=== PATIENT | male | born 1940 | race Caucasian/White ===

== ENCOUNTER 2024-08-05 14:53 | Emergency (ER) | payer OTHER, SELFPAY ==
[2024-08-05 15:05] VITALS: BP 125/68
--- NOTE | 2024-08-05 16:07 | ED.GENMED ---
History of Present Illness
General
Chief Complaint: Skin Surface Trauma
Source: patient
Exam Limitations: none
Time Seen by Provider: 08/05/24 15:51
History of Present Illness
History of Present Illness:
Patient fell this morning. Was wearing a sweatshirt. Abrasions to the left arm. Sent by urgent care. No head injury no other complaints. Last tetanus is unknown.
Past History
Past History
ED Past Medical History: HTN and Hypercholesterolemia
ED Past Surgical History: None
Social History
Living: with family
Review of Systems
Review of Systems
All Other Systems: Not applicable
Phy Exam
Physical Exam
Physical Exam:
GENERAL: Alert and oriented in no apparent distress. Normocephalic atraumatic
EYE: Orbits normal.
NECK: Supple, nontender
CARDIAC: Regular rate and rhythm
LUNGS: No respiratory distress. No chest wall tenderness
NEUROLOGICAL: Alert and oriented , grossly non-focal
SKIN: Warm and dry, large approximately 30 cm x 10 cm skin tear to the left forearm full-thickness although paperthin skin. Flap-like skin tear to the olecranon. Also a superficial flap-like skin tear near the wrist. Superficial abrasion to the
left knee
MUSCULOSKELETAL: No edema,no deformity.Good color
PSYCH: Normal and appropriate interaction.
Course
Orders/Labs/Results
Orders:
Orders
08/05/24 16:06
Tetanus/Diphth/Acelpertussis [Adacel] 0.5 ml IM .ONCE ONE
Vital Signs
Initial and Last Documented VS:
Initial Vital Signs
Temp Pulse Resp BP Pulse Ox
98 F 86 20 125/68 96
08/05/24 15:05 08/05/24 15:05 08/05/24 15:05 08/05/24 15:05 08/05/24 15:05
Last Documented Vital Signs
Temp Pulse Resp BP Pulse Ox
98 F 86 20 125/68 96
08/05/24 15:05 08/05/24 15:05 08/05/24 15:05 08/05/24 15:05 08/05/24 15:05
MDM/Problems Addressed
Differential Diagnosis Includes:
There is no area to suture for the large skin loss. It is full-thickness although paperthin skin. The other areas will be carefully Steri-Stripped. [facility] wound care who will follow-up closely. May need a graft at some point
*Critical Care Note
Total Time (30-74mins, 75-104mins- exclusive of procedures): Not Applicable
Update Note
Update Note:
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 There is no sign of acute infection. Does not warrant antibiotic coverage at this time.
ED Attending Note
-
Portions of this chart may have been created with voice recognition software.� Occasional wrong word or��sound alike� substitutions may have occurred due to the inherent limitations of voice recognition software.
Discharge Plan
Departure
Patient Disposition: Home (Routine Discharge)
Date of Disposition: 08/05/24
Time of Disposition: 16:09
Patient with high blood pressure during this ER visit?: Yes
Discharge Problem:
Large full-thickness skin tear left fore, 2 other skin tears left arm, Left knee abrasion
Instructions: Wound Care ([place]), [facility]-Wounds, BLOOD PRESSURE
Prescriptions:
No Action
amlodipine 10 MG tablet
10 mg PO DAILY
lisinopril 40 MG tablet
40 mg PO DAILY
tamsulosin 0.4 MG capsule
0.4 mg PO BID
vitamin B complex 1 TAB tablet
1 tab PO DAILY
finasteride 5 MG tablet
5 mg PO DAILY
phenazopyridine 200 MG tablet
200 mg PO TID PRN (Reason: burning while urinating) Qty: 15 0RF
Activity Restrictions/Additional Instructions:
Call the wound center first thing tomorrow morning for close follow-up. You can let them know we did talk to Dr. Barbour
Interventions
Interventions:
*General Assessment Last Done: 08/05/24 15:04
Discharge Date and Time
Print Language: IRISH
[2024-08-05] MEDS: ADACEL 0.5 ML IM (16:40)
--- NOTE | 2024-08-05 17:00 | EDRN ---
Reviewed discharge instructions with patient and his friend. Both verbalized understanding. Ambulated with steady gait to the lobby. Refused a wheelchair when offered.
[2024-08-05 17:03] VITALS: BP 150/73
== END 2024-08-05 16:50 | disposition home or self-care (01) ==
LOC: EMR 14:53
PROVIDERS: EMERGENCY PHYSICIAN Emergency Medicine; FAMILY PHYSICIAN Internal Medicine
DX: S51.812A Laceration without foreign body of left forearm, initial encounter (principal); S51.012A Laceration without foreign body of left elbow, initial encounter; S80.212A Abrasion, left knee, initial encounter; W19.XXXA Unspecified fall, initial encounter; I10 Essential (primary) hypertension; Z23 Encounter for immunization
CPT/HCPCS: 99282; 90471; 90715

== ENCOUNTER → 2024-08-06 12:40 | Outpatient (REF) | payer OTHER, SELFPAY | LOC: WOUND 12:40 | PROVIDERS: ATTENDING PHYSICIAN Surgery; FAMILY PHYSICIAN Internal Medicine | DX: S51.802A Unspecified open wound of left forearm, initial encounter (principal); S51.002A Unspecified open wound of left elbow, initial encounter; W19.XXXA Unspecified fall, initial encounter | CPT/HCPCS: 99203 ==

== ENCOUNTER → 2024-08-13 10:17 | Outpatient (REF) | payer OTHER, SELFPAY | LOC: WOUND 10:17 | PROVIDERS: ATTENDING PHYSICIAN Surgery; FAMILY PHYSICIAN Internal Medicine | DX: S51.802A Unspecified open wound of left forearm, initial encounter (principal); S51.002A Unspecified open wound of left elbow, initial encounter; W19.XXXA Unspecified fall, initial encounter | CPT/HCPCS: 11042; 11045 ==

== ENCOUNTER → 2024-08-20 13:51 | Outpatient (REF) | payer OTHER, SELFPAY | LOC: WOUND 13:51 | PROVIDERS: ATTENDING PHYSICIAN Surgery | DX: S51.802A Unspecified open wound of left forearm, initial encounter (principal); S51.002A Unspecified open wound of left elbow, initial encounter; W19.XXXA Unspecified fall, initial encounter | CPT/HCPCS: 11042 ==

== ENCOUNTER → 2024-08-27 10:20 | Outpatient (REF) | payer OTHER, SELFPAY | LOC: WOUND 10:20 | PROVIDERS: ATTENDING PHYSICIAN Surgery; FAMILY PHYSICIAN Internal Medicine | DX: S51.802A Unspecified open wound of left forearm, initial encounter (principal); S51.002A Unspecified open wound of left elbow, initial encounter; S81.802A Unspecified open wound, left lower leg, initial encounter; W19.XXXA Unspecified fall, initial encounter | CPT/HCPCS: 99213 ==

== ENCOUNTER → 2024-09-03 10:39 | Outpatient (REF) | payer OTHER, SELFPAY | LOC: WOUND 10:39 | PROVIDERS: ATTENDING PHYSICIAN Surgery; FAMILY PHYSICIAN Internal Medicine | DX: S51.802A Unspecified open wound of left forearm, initial encounter (principal); S51.002A Unspecified open wound of left elbow, initial encounter; S81.802A Unspecified open wound, left lower leg, initial encounter; W19.XXXA Unspecified fall, initial encounter | CPT/HCPCS: 99213 ==

== ENCOUNTER → 2024-09-10 08:45 | Outpatient (REF) | payer OTHER, SELFPAY | LOC: WOUND 08:45 | PROVIDERS: ATTENDING PHYSICIAN Surgery; FAMILY PHYSICIAN Internal Medicine | DX: S51.802A Unspecified open wound of left forearm, initial encounter (principal); S51.002A Unspecified open wound of left elbow, initial encounter; W19.XXXA Unspecified fall, initial encounter | CPT/HCPCS: 99213 ==

== ENCOUNTER → 2024-09-17 10:28 | Outpatient (REF) | payer OTHER, SELFPAY | LOC: WOUND 10:28 | PROVIDERS: ATTENDING PHYSICIAN Surgery; FAMILY PHYSICIAN Internal Medicine | DX: S51.802A Unspecified open wound of left forearm, initial encounter (principal); S51.002A Unspecified open wound of left elbow, initial encounter; W19.XXXA Unspecified fall, initial encounter | CPT/HCPCS: 99212 ==

== ENCOUNTER 2025-03-23 16:37 | Inpatient (IN) | payer OTHER, SELFPAY ==
[2025-03-23] VITALS (14 sets, daily range): BP systolic 120–168; BP diastolic 60–110; BMI 23.4; BMI 21.7
--- NOTE | 2025-03-23 12:24 | ED.GENMED ---
History of Present Illness
<CHANEL Garvin - Last Filed: 03/23/25 14:42>
General
Chief Complaint: Change in Mental Status
Source: family
Exam Limitations: none
Time Seen by Provider: 03/23/25 12:23
Nursing documentation reviewed up to this point in time: agreed with
History of Present Illness
History of Present Illness:
Patient is a 84-year-old male who lives at home with and 24-hour caregiver. Patient was brought by daughter daughter reports ever since January 12 patient has been intermittently confused which is not like him. He has had his days and
nights confused. He was found outside on the ground the day prior to last week and also fell this morning. She does report he has a skin tear to his right arm.
Patient is awake alert he is mildly confused but able to answer questions
Past History
<CHANEL Garvin - Last Filed: 03/23/25 14:42>
Past History
ED Past Medical History: HTN and Hypercholesterolemia
ED Past Surgical History: None
Social History
Living: with family
Phy Exam
<CHANEL Garvin - Last Filed: 03/23/25 14:42>
General Physical Exam
General Presentation: no apparent distress
General age: appears stated age
General Skin: warm and dry
General Habitus: normal
General Mental: alert
General Hydration: appears well hydrated
Cardiovascular Exam
Cardiovascular Exam: no murmur and normal peripheral pulses
Pulmonary Exam
Pulmonary Exam: lungs clear and no respiratory distress
Neurological Exam
Neurological Exam: alert and oriented x3
Musculoskeletal Exam
Musculoskeletal Exam: full ROM and other (Scattered bruising to bilateral legs scattered bruising to right arm with mild skin tear)
Skin Exam
Skin Exam: normal color and warm/dry
Psychiatric Exam
Psychiatric Exam: normal mood/affect
Course
<CHANEL Garvin - Last Filed: 03/23/25 14:42>
Orders/Labs/Results
Orders:
Orders
03/23/25 11:28
CT Cervical Spine W/o Iv Contr Urgent
Comment:
Reason For Exam: multiple falls
CT Head W/o Iv Contrast Urgent
Comment:
Reason For Exam: multiple falls
03/23/25 12:24
Cardiac Monitoring- Treatment ONCE
IV Insert/Care/Rem.- Treatment PRN
Chest [CR Chest - 2 Views ] Urgent
Comment:
Reason For Exam: change in ms
03/23/25 13:10
Complete Blood Count/With Diff Urgent
Comprehensive Metabolic Panel Urgent
03/23/25 13:47
Bladder Scan- Treatment ONCE
03/23/25 13:48
Electrocardiogram (*1) Stat
Reason for Study: Other
Other Reason for Exam: chest pain
EKG- Treatment ONCE
03/23/25 13:49
Urinalysis Reflex To Culture Urgent
Date Specimen was Collected: 03/23/25
Time Specimen was Collected: 13:43
Urine Microscopic Reflex Cult Urgent
03/23/25 14:18
0.9% Sodium Chloride 1000 ml [Nss] 1,000 ml IV BOLUS
Abnormal Lab Results
03/23/25 03/23/25
13:10 13:49
WBC 12.8 H 10^3/uL
(4.8-10.8)
RBC 4.33 L 10^6/uL
(4.70-6.10)
Abs Immat Gran (auto) 0.1 H 10^3/uL
(0-0.05)
Absolute Neuts (auto) 9.8 H 10^3/uL
(1.4-6.5)
Absolute Monos (auto) 1.1 H 10^3/uL
(0.1-0.6)
Neutrophils % 76.3 H %
(42.2-75.2)
Lymphocytes % 14.2 L %
(20.5-51.1)
Sodium 128 L mmol/L
(135-145)
Potassium 5.4 H mmol/L
(3.5-5.1)
Carbon Dioxide 20 L mmol/L
(22-30)
BUN 80 H mg/dl
(9-20)
Creatinine 2.4 H mg/dL
(0.7-1.3)
Glucose 104 H mg/dl
(70-99)
AST 112 H U/L
(17-59)
ALT 59 H U/L
(0-50)
Ur Occult Blood Reflex 4+ A
(Negative)
Urine Albumin (Reflex) 1+ A
(Neg - Trace)
03/23/25 13:10
03/23/25 13:10
Vital Signs
Initial and Last Documented VS:
Initial Vital Signs
Temp Pulse Resp BP Pulse Ox
97.5 F 77 17 138/62 100
03/23/25 11:24 03/23/25 11:24 03/23/25 11:24 03/23/25 11:24 03/23/25 11:24
Last Documented Vital Signs
Temp Pulse Resp BP Pulse Ox
97.5 F 71 19 132/63 96
03/23/25 11:24 03/23/25 12:00 03/23/25 13:39 03/23/25 12:00 03/23/25 12:24
Acute Care Surgeon consulted with Physician
Acute Care Surgeon consulted with physician?: Yes
Name of Physician Consulted: Rachel
<Keven Ramos, DO - Last Filed: 03/23/25 14:16>
Orders/Labs/Results
Orders:
Orders
03/23/25 11:28
CT Cervical Spine W/o Iv Contr Urgent
Comment:
Reason For Exam: multiple falls
CT Head W/o Iv Contrast Urgent
Comment:
Reason For Exam: multiple falls
03/23/25 12:24
Cardiac Monitoring- Treatment ONCE
IV Insert/Care/Rem.- Treatment PRN
Chest [CR Chest - 2 Views ] Urgent
Comment:
Reason For Exam: change in ms
03/23/25 13:10
Complete Blood Count/With Diff Urgent
Comprehensive Metabolic Panel Urgent
03/23/25 13:47
Bladder Scan- Treatment ONCE
03/23/25 13:48
Electrocardiogram (*1) Stat
Reason for Study: Other
Other Reason for Exam: chest pain
EKG- Treatment ONCE
03/23/25 13:49
Urinalysis Reflex To Culture Urgent
Date Specimen was Collected: 03/23/25
Time Specimen was Collected: 13:43
Urine Microscopic Reflex Cult Urgent
03/23/25 14:18
0.9% Sodium Chloride 1000 ml [Nss] 1,000 ml IV BOLUS
Abnormal Lab Results
03/23/25 03/23/25
13:10 13:49
WBC 12.8 H 10^3/uL
(4.8-10.8)
RBC 4.33 L 10^6/uL
(4.70-6.10)
Abs Immat Gran (auto) 0.1 H 10^3/uL
(0-0.05)
Absolute Neuts (auto) 9.8 H 10^3/uL
(1.4-6.5)
Absolute Monos (auto) 1.1 H 10^3/uL
(0.1-0.6)
Neutrophils % 76.3 H %
(42.2-75.2)
Lymphocytes % 14.2 L %
(20.5-51.1)
Sodium 128 L mmol/L
(135-145)
Potassium 5.4 H mmol/L
(3.5-5.1)
Carbon Dioxide 20 L mmol/L
(22-30)
BUN 80 H mg/dl
(9-20)
Creatinine 2.4 H mg/dL
(0.7-1.3)
Glucose 104 H mg/dl
(70-99)
AST 112 H U/L
(17-59)
ALT 59 H U/L
(0-50)
Ur Occult Blood Reflex 4+ A
(Negative)
Urine Albumin (Reflex) 1+ A
(Neg - Trace)
03/23/25 13:10
03/23/25 13:10
Vital Signs
Initial and Last Documented VS:
Initial Vital Signs
Temp Pulse Resp BP Pulse Ox
97.5 F 77 17 138/62 100
03/23/25 11:24 03/23/25 11:24 03/23/25 11:24 03/23/25 11:24 03/23/25 11:24
Last Documented Vital Signs
Temp Pulse Resp BP Pulse Ox
97.5 F 71 19 132/63 96
03/23/25 11:24 03/23/25 12:00 03/23/25 13:39 03/23/25 12:00 03/23/25 12:24
Procedures
<CHANEL Garvin - Last Filed: 03/23/25 14:42>
Laceration Closure
Right Lateral Arm:
Status of Wound: clean and other (skin tear )
Size of Wound in cm: 4
Preparation: cleaned with saline
Revision/Debridement: irrigate-direct pressure
Type of Closure: other (Steri-Strips)
<CHANEL Garvin - Last Filed: 03/23/25 14:42>
MDM/Problems Addressed
Differential Diagnosis Includes:
Not limited to dehydration infection dementia, head injury, electrolyte abnormality
MDM/Problems Addressed:
Patient is a 84-year-old male who lives at home with and caregiver. Daughter bedside reports patient is in increased confusion multiple falls in the past 2 weeks. Patient is not anticoagulated. He arrives awake and alert scattered bruising.
He does follow commands minimally confused. CT head/cervical spine/chest x-ray negative. Daughter reports patient is not eating and drinking well. His sodium is low at 128 his BUN is 80 with a creatinine of 2.4 potassium 5.4. He was found to be
retaining urine and a Dunlap was inserted. Will require admission. Case discussed with admitting hospitalist and nephrology patient was given fluids.
Chronic conditions affecting care:
htn memory issues hyperlipidemia
<CHANEL Garvin - Last Filed: 03/23/25 14:42>
*Radiology
Radiology exam reviewed: radiology read reviewed
*Pulse Oximetry
SaO2: 96
Oxygen Mode of Delivery: Room air
Patient hypoxic: no
*EKG
Interpreted by ED Provider?: Yes
Heart Rate: 65
Rate: normal
Rhythm: sinus
Ischemia: no ischemia
*Critical Care Note
Total Time (30-74mins, 75-104mins- exclusive of procedures): Not Applicable
<CHANEL Garvin - Last Filed: 03/23/25 14:42>
Patient Management
Discussion with other providers: Hospitalist and Media Librarian (DR Sheppard made aware )
ED Attending Note
<CHANEL Garvin - Last Filed: 03/23/25 14:42>
-
Portions of this chart may have been created with voice recognition software.� Occasional wrong word or��sound alike� substitutions may have occurred due to the inherent limitations of voice recognition software.
<Keven Jaun Rachel, DO - Last Filed: 03/23/25 14:16>
ED Attending Note
Patient seen and examined by attending physician: Yes
I performed the substantive portion of visit, reviewed & personally made and approve the management plan that is documented in note by myself or DEWEY.: Yes
ED Attending Note:
I evaluated the patient at bedside. Mild leukocytosis is noted. Creatinine is 2.4 up from 1.3 in 2017. Patient is also in urinary retention, will place Dunlap catheter. Urinalysis shows no sign of infection. Given overall weakness and confusion,
with recurrent falls, will admission to hospital.
Discharge Plan
Departure
Prescriptions:
No Action
amlodipine 10 MG tablet
10 mg PO DAILY
lisinopril 40 MG tablet
40 mg PO DAILY
tamsulosin 0.4 MG capsule
0.4 mg PO BID
vitamin B complex 1 TAB tablet
1 tab PO DAILY
finasteride 5 MG tablet
5 mg PO DAILY
phenazopyridine 200 MG tablet
200 mg PO TID PRN (Reason: burning while urinating) Qty: 15 0RF
Referrals:
Nestor Dobson MD [Family Provider, Internal Medicine]
Interventions
Interventions:
*Risk Screen - Suicide Last Done: 03/23/25 11:26
*General Assessment Last Done: 03/23/25 11:26
*Neglect/Abuse Screening Last Done: 03/23/25 11:26
*ED COVID-19 Vaccine History Last Done: 03/23/25 11:26
*ED Influenza Vaccine History Last Done: 03/23/25 11:26
[facility] Fall Risk Assessment Tool Last Done: 03/23/25 12:24
ED- Pulmonary Assessment Last Done: 03/23/25 13:37
ED-Psychological Assessment Last Done: 03/23/25 13:37
ED- Neurological Assessment Last Done: 03/23/25 13:37
ED- Cardiac Assessment Last Done: 03/23/25 13:37
Discharge Date and Time
Print Language: MOHAWK
[2025-03-23 13:29] LABS: Hematocrit 40.1 % (39.0-52.0); Hemoglobin 13.3 g/dL (13.0-18.0); Mean Corp Hgb Conc. 33.2 g/dL (33.0-37.0); Mean Corpuscular Volume 92.6 fL (80.0-94.0); Nucleated Red Blood Cells % 0 % (-); Platelet Count 224 10^3/uL (130-400); Red Cell Dist. Width 12.3 % (11.5-14.5)
[2025-03-23 13:38] LABS: ALT (SGPT) 59 U/L (0-50); AST (SGOT) 112 U/L (17-59); Albumin 4.0 g/dl (3.5-5.0); Alkaline Phosphatase 95 U/L (38-126); Blood Urea Nitrogen 80 mg/dl (9-20); Calcium 9.1 mg/dl (8.4-10.2); Carbon Dioxide 20 mmol/L (22-30); Chloride 101 mmol/L (98-107); Estimated Creatinine Clearance 21 ml/min; Glucose 104 mg/dl (70-99); Potassium 5.4 mmol/L (3.5-5.1); Sodium 128 mmol/L (135-145); Total Protein 6.8 g/dl (6.3-8.2); eGFR 25.80
[2025-03-23 14:10] LABS: Urine Character Clear (Clear)
[2025-03-23] MEDS: NSS 1000 IV (14:34)
--- NOTE | 2025-03-23 15:05 | HPS.HSE ---
Addendum entered and electronically signed by Nicho Nunez MD 03/23/25 15:55:
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
Has been hyperkalemic and with CKD for quite some time
F/u BMP closely
Renal was consulted from ED
#Urinary retention
-has hx of TURBT in 2017
-Dunlap in place
-monitor
Original Note:
Family Physician
-
Family Physician: Nestor Dobson
Chief Complaint
-
change in mental status
History of Present Illness
36-year-old male with past medical history of hypertension, hypothyroidism, BPH now presents to the hospital after daughter stating patient is intermittently confused. Recent changes in mental status include being found on the ground, no head
strike, prior to Thanksgiving last week and falling this morning. Did endorse skin tear to the right arm. Patient remained afebrile, mildly hypertensive blood pressure 159/79, saturating 99% on room air. Pulse in the 60s. White count 12.8,
sodium 128, potassium 5.4, and HASMUKH 2.4 creatinine with unknown baseline although 1.38 years ago. Mild transaminitis with AST 112, ALT 59. UA negative. CT head unremarkable for acute pathology, atelectasis on the x-ray. Dunlap was placed, 788 cc
output noted
Medical History
Past Medical History
Past Medical History: Reports HTN, Hypothyroidism and Other (BPH)
Past Surgical History: Reports None
Social History
Unable to obtain full social history at this time due to: Acuity
Tobacco: Non-smoker
Living: With Family
Family History
Family History: Not pertinent
Allergies / Home Medications
Allergies reflects when Allergies were last updated in [employer].
Home Medications with original date entered in [employer]
Allergy/Medication List:
Allergies
Allergy/AdvReac Type Severity Reaction Status Date / Time
hydrochlorothiazide (From Allergy hyponatremi Verified 03/23/25 11:26
Dyazide) a
triamterene (From Dyazide) Allergy hyponatremi Verified 03/23/25 11:26
a
Home Medications
lisinopril 40 mg tablet 40 mg PO DAILY 01/02/16
finasteride 5 mg tablet 5 mg PO Q72H Urinary Issue 06/04/16
vitamin B complex 1 tab PO DAILY 06/04/16
levothyroxine 25 mcg tablet (Synthroid) 37.5 mcg PO DAILY 03/23/25
sertraline 50 mg tablet 50 mg PO DAILY 03/23/25
Review of Systems
-
History Source: Patient
A 12 point ROS was completed and negative except as noted: Yes
Physical Exam
Vital Signs
Vital Signs
Temp Pulse Resp BP Pulse Ox
97.5 F 64 15 159/79 99
03/23/25 11:24 03/23/25 14:45 03/23/25 14:45 03/23/25 14:25 03/23/25 14:45
Physical Exam
General: Well Developed and Well Nourished
HEENT: NormoCephalic
Respiratory: Clear
Cardiac: S1/S2 and Regular Rhythm
GI: Non Tender
Musculoskeletal: No Clubbing
Skin: Other (Scattered bruising to bilateral legs scattered bruising to right arm with mild skin tear)
Neuro: AO x 3
Hematologic/Lymphatic: No Lymphadenopathy
Laboratory Results
-
03/23/25 13:10
03/23/25 13:10
Laboratory Results
Total Bilirubin 1.1 mg/dl (0.2-1.3) 03/23/25 13:10
AST 112 U/L (17-59) H 03/23/25 13:10
ALT 59 U/L (0-50) H 03/23/25 13:10
Alkaline Phosphatase 95 U/L (38-126) 12/02/25 13:10
Data Reviewed
-
CT Scan: Report Reviewed by me
Lab Data: Labs Reviewed by me
Impression/Plan
-
IMPRESSION:
84-year-old male with past medical history of hypertension, hypothyroidism, BPH now presenting for frequent falls and altered mental status found to have HASMUKH, urinary retention
PLAN:
#Urinary retention
� Drained 788 cc status post Dunlap
� Follow-up CT abdomen pelvis to assess for hydronephrosis
� Continue Dunlap
� Add tamsulosin
� Continue finasteride, switch to daily
� Continue to monitor urine output
#HASMUKH
#Hyperkalemia
#Uremia
� Secondary to urinary retention, postrenal etiology
� Monitor BMP with Dunlap placement
� UA negative
� Hold nephrotoxic agents
#Hyponatremia
� Secondary to urinary retention
� Monitor with placement of Dunlap
Transaminitis
� Mild
� Continue to monitor
� No abdominal pain
#Leukocytosis
� Most likely reactive
� Continue to monitor fever curve, white count
#Acute metabolic encephalopathy
� Secondary to HASMUKH, uremia in setting of elevated BUN
� Continue to monitor with resuscitation
� PT OT
#Hypothyroidism
� Follow-up TFTs
� Continue Synthroid
#Hypertension�hold lisinopril due to HASMUKH
#DVT prophylaxis
� HSQ
--- NOTE | 2025-03-23 16:41 | W.CON.NEPH ---
Consultation
-
Date/Time Consultation Requested: 03/23/25 1515
Date/Time Consultation Performed: 03/23/25 1600
Requesting Provider: Nicho Clark
Performing Provider: Winnie Ryder
Reason for Consultation: Kyle with CKD, high k
Medical History
-
Chief Complaint: AMS
History of Present Illness:
84-year-old male with past medical history of hypertension on lisinopril, hypothyroidism on levothyroxine, CKD baseline 1.7-1.9 last labs in 05/2024 not seen nephro, BPH s/p TURP on finasteride follow now presents to the hospital after daughter
stating patient is intermittently confused. Recent changes in mental status include being found on the ground, he has some falls over the course of time unwitnessed too. no head injury but skin tear to the right arm. He is hemodynamically stable,
labs noted White count 12.8, sodium 128, potassium 5.4, and KYLE 2.4 creatinine, BUN 80. Mild transaminitis with AST 112, ALT 59. CT head unremarkable for acute pathology, atelectasis on the x-ray. Grigsby was placed, 788 cc output noted. Upon
further questioning daughter mentiones that pt c/o bilat groin pain this monring. No fever, cough, cp or sob. no abd pain, no nv/. No diarrhea. According to daughter his appetite has decreased for last 2days.
Past Medical History
HTN, Hypothyroidism, CKD 3b BPH
Past Surgical History: Other (s/p TURP)
Social History
Tobacco: Former Smoker
Alcohol: Daily (1 beer)
Drug: None
Personal:
Living: With Family
Family History
Family History: Not Pertinent
Allergies / Home Medications
Allergy/AdvReac Type Severity Reaction Status Date / Time
hydrochlorothiazide (From Allergy hyponatremi Verified 03/23/25 11:26
Dyazide) a
triamterene (From Dyazide) Allergy hyponatremi Verified 03/23/25 11:26
a
�Medication �Instructions �Recorded �Confirmed �Type
lisinopril 40 mg tablet 40 mg PO DAILY 01/02/16 03/23/25 History
finasteride 5 mg tablet 5 mg PO Q72H Urinary Issue 06/04/16 03/23/25 History
vitamin B complex 1 tab PO DAILY 06/04/16 03/23/25 History
levothyroxine 25 mcg tablet 37.5 mcg PO DAILY 03/23/25 03/23/25 History
(Synthroid)
sertraline 50 mg tablet 50 mg PO DAILY 03/23/25 03/23/25 History
Review of Systems
-
All other systems: Negative unless noted
Physical Exam
Vital Signs
Vital Signs
Temp Pulse Resp BP Pulse Ox
97.5 F 64 15 159/79 99
03/23/25 11:24 03/23/25 14:45 03/23/25 14:45 03/23/25 14:25 03/23/25 14:45
Lab Results
WBC 12.8 10^3/uL (4.8-10.8) H 03/23/25 13:10
RBC 4.33 10^6/uL (4.70-6.10) L 03/23/25 13:10
Hgb 13.3 g/dL (13.0-18.0) 03/23/25 13:10
Hct 40.1 % (39.0-52.0) 03/23/25 13:10
Plt Count 224 10^3/uL (130-400) 03/23/25 13:10
Sodium 128 mmol/L (135-145) L 03/23/25 13:10
Potassium 5.4 mmol/L (3.5-5.1) H 03/23/25 13:10
Chloride 101 mmol/L (98-107) 03/23/25 13:10
Carbon Dioxide 20 mmol/L (22-30) L 03/23/25 13:10
BUN 80 mg/dl (9-20) H 03/23/25 13:10
Creatinine 2.4 mg/dL (0.7-1.3) H 03/23/25 13:10
eGFR 25.80 03/23/25 13:10
Glucose 104 mg/dl (70-99) H 03/23/25 13:10
Calcium 9.1 mg/dl (8.4-10.2) 03/23/25 13:10
Albumin 4.0 g/dl (3.5-5.0) 03/23/25 13:10
Physical Exam
General: Awake, Alert, Oriented, AOx3, No Distress and Nontoxic
HEENT: EOMI, Conjunctivae Clear and Facial Symmetry
Respiratory: Clear, Normal Excursion and Nonlabored Respirations
Cardiac: S1/S2 and Regular Rate/Rhythm
Breast: Deferred by me
Abdomen: Soft, Nontender and Nondistended
Genito-urinary: Clear Urine (grigsby)
Musculoskeletal: No Cyanosis and No Edema
Skin: No Rash
Neuro: Nonfocal/Grossly Intact
Psych: Appropriate
Data Reviewed
-
Labs: Labs Reviewed by me, Discussed with Physician, Discussed with Patient and Discussed with Family
Assessment/Plan
-
IMP:
Urinary retention
KYLE with CKD 3b baseline cr 1.7-1.9
Chronic Hyperkalemia
Azotemia +/- uremia
Hyponatremia
Transaminitis
mild non gap met acidosis
Leukocytosis
Acute metabolic encephalopathy
Hypothyroidism
Hypertension
Minor nodular thickening versus subcentimeter adenomas in the bilateral adrenal glands on CT
Plan:
A/w AMS
KYLE-suspect obst uropathy, s/p grigsby
CT abd no hydro,UA microhematuria and bact possible from retention, await cx
expect to see improvement of cr, consulted
chr hyperkalemia-off ACEI
hyponatremia-check U osmo, U na
try gentle IVF today
avoid nephrotoxins
Bp stable, likely need to replace ACEI with CCB
d/w pt, family and primary
[2025-03-23] MEDS: SODIUM BICARBONATE 1075 MEQ IV (18:08)
--- NOTE | 2025-03-23 22:30 | PTCARENOTE ---
Received patient from ED via stretcher. Patient pulled over from stretcher to bed. No current complaints of pain. Oriented patient to room and placed call morrissey within reach.
[2025-03-23] MEDS: FLOMAX 0.4 MG PO (23:05)
[2025-03-23] MEDS: PROSCAR 5 MG PO (23:05)
--- NOTE | 2025-03-23 23:40 | PTCARENOTE ---
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 Patient is following with his timber bucker and tested positive in June and was also swabbed 03/02. He was reported positive 03/08 and started on
doxy on either 03/08 or 03/09 per daughter and finished his last pill 03/22. SYSTEMS SOFTWARE ENGINEER made aware, MRSA swab ordered and obtained. Nursing machinist supervisor made aware, patient in for private room once available. Patient and daughter Tommy made aware.
--- NOTE | 2025-03-24 01:30 | W.PN.UPDATE ---
Update Note
Progress Note Update
RN reports that she is refusing heparin sq due to hx of falls. She is ok with SCDs. Will dc heparin sq and order scd per request
[2025-03-24 03:38] VITALS: BP 133/65
[2025-03-24] MEDS: SYNTHROID 75 MCG PO (06:25)
[2025-03-24 07:19] VITALS: BP 144/61
[2025-03-24 07:49] LABS: Hematocrit 38.3 % (39.0-52.0); Hemoglobin 13.0 g/dL (13.0-18.0); Mean Corp Hgb Conc. 33.9 g/dL (33.0-37.0); Mean Corpuscular Volume 89.9 fL (80.0-94.0); Platelet Count 208 10^3/uL (130-400); Red Cell Dist. Width 12.1 % (11.5-14.5)
[2025-03-24] MEDS: PROSCAR 5 MG PO (08:20)
[2025-03-24] MEDS: FLOMAX 0.4 MG PO (08:20)
[2025-03-24 08:34] LABS: ALT (SGPT) 60 U/L (0-50); AST (SGOT) 94 U/L (17-59); Albumin 3.5 g/dl (3.5-5.0); Alkaline Phosphatase 104 U/L (38-126); Blood Urea Nitrogen 62 mg/dl (9-20); Calcium 8.6 mg/dl (8.4-10.2); Carbon Dioxide 24 mmol/L (22-30); Chloride 100 mmol/L (98-107); Estimated Creatinine Clearance 24 ml/min; Glucose 88 mg/dl (70-99); Potassium 4.7 mmol/L (3.5-5.1); Sodium 128 mmol/L (135-145); Total Protein 6.0 g/dl (6.3-8.2); eGFR 32.10
--- NOTE | 2025-03-24 10:15 | WOUNDNOTE ---
ANGELITO RN NOTE: Patient admitted with acute urinary retention, dehydration. Reviewed chart and history. Patient had been going to [facility] for L leg and arm wounds that have since healed. Scattered bruising and scars remain. Scalp with intact dry scabs,
seen and followed by radiology services manager, no drainage. R arm skin tear with intact steri strips, drainage distally, small partial thickness opening. Adaptic, ABD pad and flo applied. Patient turns self, sacrum and heels intact. Patient is on an Accumax
bed, pillow placed under calves, appetite is good. Will sign off.
[2025-03-24 11:10] VITALS: BP 126/66
[2025-03-24] MEDS: ZOLOFT 50 MG PO (12:00)
[2025-03-24] MEDS: SEROQUEL 12.5 MG PO (12:43)
--- NOTE | 2025-03-24 14:36 | W.PN.NEPH.PH ---
Today's Communication / Plan
-
follow BMP
Assessment/Plan
-
IMP:
Urinary retention
HASMUKH with CKD 3b baseline cr 1.7-1.9
Chronic Hyperkalemia
Azotemia +/- uremia
Hyponatremia
Transaminitis
mild non gap met acidosis
Leukocytosis
Acute metabolic encephalopathy
Hypothyroidism
Hypertension
Minor nodular thickening versus subcentimeter adenomas in the bilateral adrenal glands on CT
Plan:
follow BMP
maintain grigsby for now
eventual voiding trial
dw family, they do not believe OP grigsby is practical given his dementia
holding ACEI
-
-
Date of Service: March 24, 2025
CC / HPI / ROS
-
Chief Complaint:
HASMUKH
History of Present Illness:
HASMUKH/Cr down to 2.[address] for retention
BP stable
Review of Systems:
no CP/SOB
Labs
-
Labs:
WBC 12.3 10^3/uL (4.8-10.8) H 03/24/25 07:14
RBC 4.26 10^6/uL (4.70-6.10) L 03/24/25 07:14
Hgb 13.0 g/dL (13.0-18.0) 03/24/25 07:14
Hct 38.3 % (39.0-52.0) L 03/24/25 07:14
Plt Count 208 10^3/uL (130-400) 03/24/25 07:14
Sodium 128 mmol/L (135-145) L 03/24/25 07:14
Potassium 4.7 mmol/L (3.5-5.1) 03/24/25 07:14
Chloride 100 mmol/L (98-107) 03/24/25 07:14
Carbon Dioxide 24 mmol/L (22-30) 03/24/25 07:14
BUN 62 mg/dl (9-20) H 03/24/25 07:14
Creatinine 2.0 mg/dL (0.7-1.3) H 03/24/25 07:14
eGFR 32.10 03/24/25 07:14
Glucose 88 mg/dl (70-99) 03/24/25 07:14
Calcium 8.6 mg/dl (8.4-10.2) 03/24/25 07:14
Albumin 3.5 g/dl (3.5-5.0) 03/24/25 07:14
Physical Exam
-
Vital Signs:
Vital Signs
Temp Pulse Resp BP Pulse Ox
97.6 F 74 18 126/66 98
03/24/25 11:10 03/24/25 11:10 03/24/25 11:10 03/24/25 11:10 03/24/25 11:11
Cardiovascular:: Regular rate and rhythm
Respiratory:: Bilateral: Coarse
Lung Excursion:: Normal
Abdomen:: Nontender and Soft
Bowel Sounds:: Normal
Extremity Edema:: None: Bilateral:
--- NOTE | 2025-03-24 14:59 | W.PN.HOSP.TC ---
Today's Communication/Plan
-
monitor bmp with grigsby
tamsulosin, finasteride
pt/ot
Assessment / Plan
Assessment / Plan
Physical Exam
General: Well Developed and Well Nourished
HEENT: NormoCephalic
Respiratory: Clear
Cardiac: S1/S2 and Regular Rhythm
GI: Non Tender
Musculoskeletal: No Clubbing
Skin: Other (Scattered bruising to bilateral legs scattered bruising to right arm with mild skin tear)
: Grigsby in place draining yellow urine
Neuro: AO x 3
Hematologic/Lymphatic: No Lymphadenopathy
84-year-old male with past medical history of hypertension, hypothyroidism, BPH now presenting for frequent falls and altered mental status found to have HASMUKH, urinary retention
PLAN:
#Urinary retention
- has hx of TURBT in 2017, Follows Dr. Varma
� Drained 788 cc status post Grigsby
� Follow-up CT abdomen pelvis negative for Obstruction
� Continue Grigsby
� Add tamsulosin
� Continue finasteride, switch to daily
� Continue to monitor urine output
-Family does not believe OP grigsby is practical given his dementia
#HASMUKH on CKD3b
#Hyperkalemia
#Uremia
-S/p Bicarb solution
� Secondary to urinary retention, postrenal etiology
� Monitor BMP with Grigsby placement
� UA negative
� Hold nephrotoxic agents
-Nephro consulted
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
#Hyponatremia
� Secondary to urinary retention
� Monitor with placement of Grigsby
Transaminitis
� Mild
� Continue to monitor
� No abdominal pain
#Leukocytosis
� Most likely reactive
� Continue to monitor fever curve, white count
#Acute metabolic encephalopathy
#Delirium
� Secondary to HASMUKH, uremia in setting of elevated BUN along with hospitalization related delirium
� Continue to monitor with resuscitation
� PT OT
#Hypothyroidism
� TSH wnl
� Continue Synthroid
#Hypertension�hold lisinopril due to HASMUKH
#DVT prophylaxis
� HSQ
Anticipated Discharge: 24 - 48 hours
Subjective/Interval History
-
Date of Service: March 24, 2025
delirious today, more confused than yesterday
Objective Data
-
Labs:
Laboratory Results
03/24/25
07:14
WBC 12.3 H
Hgb 13.0
Hct 38.3 L
Plt Count 208
Sodium 128 L
Potassium 4.7
Chloride 100
Carbon Dioxide 24
BUN 62 H
Creatinine 2.0 H
Glucose 88
Calcium 8.6
Total Bilirubin 1.3
AST 94 H
ALT 60 H
Alkaline Phosphatase 104
Vital Signs:
Vital Signs
Temp Pulse Resp BP Pulse Ox
97.6 F 74 18 126/66 98
03/24/25 11:10 03/24/25 11:10 03/24/25 11:10 03/24/25 11:10 03/24/25 11:11
I&O
03/23/25 03/24/25 03/25/25
06:59 06:59 06:59
Output Total 2199 / 2199
Balance -2199 / -2199
Review of Systems
-
History Source: Patient
All other systems: Not reviewed unless documented
Data Reviewed
-
CT Scan: Report Reviewed by me
Labs: Labs Reviewed by me
[2025-03-24 15:04] VITALS: BP 123/69
[2025-03-24 15:23] VITALS: BMI 21.7
--- NOTE | 2025-03-24 17:07 | PTCARENOTE ---
pt transferred to [facility] room 429. pt's belonging sent with the pt. daughter at the bedside updated. report given to ANDRY Barajas.
[2025-03-24 23:06] VITALS: BP 134/68
[2025-03-24] MEDS: STERILE WATER FOR INJECTION 2.1 ML IM (23:41)
[2025-03-24] MEDS: ZYPREXA 5 MG IM (23:41)
--- NOTE | 2025-03-24 23:50 | PTCARENOTE ---
ALBERTO ESTEVEZ called. Pt insisting on using the bathroom without assistance. Pt is unsteady on his feet and it a falls risk. Pt disoriented to place and time, thinks it is day time and he is at home. Pt kept 'shushing' staff and insisting on closing
the door to the bathroom. Security helped assist pt to toilet and then back to bed. Pt refused PO seroquel. IM zyprexa given.
--- NOTE | 2025-03-25 00:55 | W.PN.UPDATE ---
Update Note
Progress Note Update
[id number] code purple was called on pt due to increasing agitation. Pt insisted on walking in bathroom and then insisted that door be closed to bathroom. Pt is fall risk and is very unsteady on his feet. Security assisted. Pt agitated, angry and thinks
he is at home. With security help pt was able to be placed back to bed. but he continued to attempt to climb oob. not redirectable. Attempted to give prn seroquel but he would not take it. IM zyprexa ordered. Will start with 5mg as pt with HASMUKH.
[2025-03-25] MEDS: SEROQUEL 12.5 MG PO (03:54)
[2025-03-25] MEDS: SYNTHROID 75 MCG PO (03:54)
[2025-03-25 07:30] VITALS: BP 149/73
[2025-03-25 08:14] LABS: Hematocrit 39.1 % (39.0-52.0); Hemoglobin 13.7 g/dL (13.0-18.0); Mean Corp Hgb Conc. 35.0 g/dL (33.0-37.0); Mean Corpuscular Volume 88.9 fL (80.0-94.0); Platelet Count 204 10^3/uL (130-400); Red Cell Dist. Width 12.2 % (11.5-14.5)
[2025-03-25 08:52] LABS: ALT (SGPT) 69 U/L (0-50); AST (SGOT) 86 U/L (17-59); Albumin 3.6 g/dl (3.5-5.0); Alkaline Phosphatase 114 U/L (38-126); Blood Urea Nitrogen 59 mg/dl (9-20); Calcium 9.0 mg/dl (8.4-10.2); Carbon Dioxide 26 mmol/L (22-30); Chloride 104 mmol/L (98-107); Estimated Creatinine Clearance 25 ml/min; Glucose 87 mg/dl (70-99); Potassium 4.8 mmol/L (3.5-5.1); Sodium 133 mmol/L (135-145); Total Protein 6.1 g/dl (6.3-8.2); eGFR 34.14
[2025-03-25] MEDS: FLOMAX 0.4 MG PO (08:55)
[2025-03-25] MEDS: ZOLOFT 50 MG PO (08:55)
[2025-03-25] MEDS: PROSCAR 5 MG PO (08:55)
[2025-03-25] MEDS: STERILE WATER FOR INJECTION 10 ML IV (09:27)
[2025-03-25] MEDS: ROCEPHIN 1000 MG IV (09:27)
--- NOTE | 2025-03-25 13:52 | W.PN.HOSP.TC ---
Today's Communication/Plan
-
abx
f/u cultures
TOV
monitor BMP
PT/OT
Assessment / Plan
Assessment / Plan
Physical Exam
General: Well Developed and Well Nourished
HEENT: NormoCephalic
Respiratory: Clear
Cardiac: S1/S2 and Regular Rhythm
GI: Non Tender
Musculoskeletal: No Clubbing
Skin: Other (Scattered bruising to bilateral legs scattered bruising to right arm with mild skin tear)
: Grigsby in place draining yellow urine
Neuro: AO x 3
Hematologic/Lymphatic: No Lymphadenopathy
84-year-old male with past medical history of hypertension, hypothyroidism, BPH now presenting for frequent falls and altered mental status found to have HASMUKH, urinary retention
PLAN:
#Urinary retention
- has hx of TURBT in 2017, Follows Dr. Varma
� Drained 788 cc status post Grigsby
� CT abdomen pelvis negative for Obstruction - no hydro or obstruction
� TOV today
� Add tamsulosin
� Continue finasteride, switch to daily
� Continue to monitor urine output
-Family does not believe OP grigsby is practical given his dementia
-F/u urology outpt
#HASMUKH on CKD3b
#Hyperkalemia
#Uremia
-improving
-S/p Bicarb solution
� Secondary to urinary retention, postrenal etiology
� Monitor BMP with Grigsby placement
� Hold nephrotoxic agents
-Nephro consulted
-may require bicarb tablets assisted
#UTI, complicated
#Sepsis with Source(urine) and organ dysfunction (encephalopathy)
-f/u cultures
-cont abx
-maintain map >65
#Hyponatremia, improving
� Secondary to urinary retention
� Improved with grigsby placement
Transaminitis, improving
� Mild
� Continue to monitor
� No abdominal pain
#Leukocytosis
� Most likely reactive
� Continue to monitor fever curve, white count
#Acute metabolic encephalopathy
#Delirium
� Secondary to HASMUKH, uremia in setting of elevated BUN along with hospitalization related delirium +/- UTI
� Continue to monitor with resuscitation
� PT OT
-Treat with abx
#Hypothyroidism
� TSH wnl
� Continue Synthroid
#Hypertension�hold lisinopril due to HASMUKH
#DVT prophylaxis
� HSQ
Total time spent on today's encounter was 51 minutes which included time spent in counseling the patient/family regarding diagnosis and treatment plan as listed above, goals of care, and symptom management. Case was discussed with nursing staff,
specialists, and care coordinators/case management. All labs and imaging personally reviewed by me. Remainder the time spent in detailed review of previous records, lab data, imaging, and other medical provider documentation.
Anticipated Discharge: 24 - 48 hours
Subjective/Interval History
-
Date of Service: March 25, 2025
still delirious
Objective Data
-
Labs:
Laboratory Results
03/25/25
07:33
WBC 11.9 H
Hgb 13.7
Hct 39.1
Plt Count 204
Sodium 133 L
Potassium 4.8
Chloride 104
Carbon Dioxide 26
BUN 59 H
Creatinine 1.9 H
Glucose 87
Calcium 9.0
Total Bilirubin 1.1
AST 86 H
ALT 69 H
Alkaline Phosphatase 114
Vital Signs:
Vital Signs
Temp Pulse Resp BP Pulse Ox
97.7 F 68 16 149/73 97
03/25/25 07:30 03/25/25 07:30 03/25/25 07:30 03/25/25 07:30 03/25/25 08:50
I&O
03/24/25 03/25/25 03/26/25
06:59 06:59 06:59
Output Total 2200 / 2200 1425 / 1425
Balance -2200 / -2200 -1425 / -1425
Review of Systems
-
History Source: Patient
All other systems: Not reviewed unless documented
Data Reviewed
-
CT Scan: Report Reviewed by me
Labs: Labs Reviewed by me
--- NOTE | 2025-03-25 15:02 | W.PN.NEPH.PH ---
Today's Communication / Plan
-
VT
Assessment/Plan
-
IMP:
Urinary retention
HASMUKH with CKD 3b baseline cr 1.7-1.9
Chronic Hyperkalemia
Azotemia +/- uremia
Hyponatremia
Transaminitis
mild non gap met acidosis
Leukocytosis
Acute metabolic encephalopathy
Hypothyroidism
Hypertension
Minor nodular thickening versus subcentimeter adenomas in the bilateral adrenal glands on CT
Plan:
follow BMP
voiding trial
holding ACEI
-
-
Date of Service: March 25, 2025
CC / HPI / ROS
-
Chief Complaint:
HASMUKH
History of Present Illness:
HASMUKH/Cr down to 1.9
grigsby out today for VT
BP stable
restrained
Review of Systems:
no CP/SOB
Labs
-
Labs:
WBC 11.9 10^3/uL (4.8-10.8) H 03/25/25 07:33
RBC 4.40 10^6/uL (4.70-6.10) L 03/25/25 07:33
Hgb 13.7 g/dL (13.0-18.0) 03/25/25 07:33
Hct 39.1 % (39.0-52.0) 03/25/25 07:33
Plt Count 204 10^3/uL (130-400) 03/25/25 07:33
Sodium 133 mmol/L (135-145) L 03/25/25 07:33
Potassium 4.8 mmol/L (3.5-5.1) 03/25/25 07:33
Chloride 104 mmol/L (98-107) 03/25/25 07:33
Carbon Dioxide 26 mmol/L (22-30) 03/25/25 07:33
BUN 59 mg/dl (9-20) H 03/25/25 07:33
Creatinine 1.9 mg/dL (0.7-1.3) H 03/25/25 07:33
eGFR 34.14 03/25/25 07:33
Glucose 87 mg/dl (70-99) 03/25/25 07:33
Calcium 9.0 mg/dl (8.4-10.2) 03/25/25 07:33
Albumin 3.6 g/dl (3.5-5.0) 03/25/25 07:33
Physical Exam
-
Vital Signs:
Vital Signs
Temp Pulse Resp BP Pulse Ox
97.7 F 68 16 149/73 97
03/25/25 07:30 03/25/25 07:30 03/25/25 07:30 03/25/25 07:30 03/25/25 08:50
Cardiovascular:: Regular rate and rhythm
Respiratory:: Bilateral: Coarse
Lung Excursion:: Normal
Abdomen:: Nontender and Soft
Bowel Sounds:: Normal
Extremity Edema:: None: Bilateral:
[2025-03-25] MEDS: LR 500 IV (15:06)
[2025-03-25 15:20] VITALS: BP 116/62; PULSE 71; O2SAT 97
[2025-03-25 15:30] VITALS: BP 141/54
[2025-03-25 15:40] VITALS: BP 116/62; PULSE 71; O2SAT 97
[2025-03-25] MEDS: MELATONIN 5 MG PO (23:09)
[2025-03-25 23:10] VITALS: BP 103/48
[2025-03-26] MEDS: SYNTHROID 75 MCG PO (05:22)
--- NOTE | 2025-03-26 05:27 | PTCARENOTE ---
Pt has been voiding moderate amount of urine. Pt was bladder scanned post void and does retain urine. Pt ambulate to the bathroom w/ 1 assistance and rolling walker. Pt AAOx1 to 2. forgetful of time and place at time. Will cont w/ tx plan.
[2025-03-26 07:50] VITALS: BP 126/57
[2025-03-26 07:59] LABS: ALT (SGPT) 60 U/L (0-50); AST (SGOT) 55 U/L (17-59); Albumin 3.3 g/dl (3.5-5.0); Alkaline Phosphatase 120 U/L (38-126); Blood Urea Nitrogen 61 mg/dl (9-20); Calcium 8.7 mg/dl (8.4-10.2); Carbon Dioxide 27 mmol/L (22-30); Chloride 103 mmol/L (98-107); Estimated Creatinine Clearance 23 ml/min; Glucose 98 mg/dl (70-99); Potassium 5.3 mmol/L (3.5-5.1); Sodium 132 mmol/L (135-145); Total Protein 5.8 g/dl (6.3-8.2); eGFR 30.28
[2025-03-26 08:12] LABS: Hematocrit 39.5 % (39.0-52.0); Hemoglobin 13.4 g/dL (13.0-18.0); Mean Corp Hgb Conc. 33.9 g/dL (33.0-37.0); Mean Corpuscular Volume 90.6 fL (80.0-94.0); Platelet Count 198 10^3/uL (130-400); Red Cell Dist. Width 12.2 % (11.5-14.5)
[2025-03-26] MEDS: PROSCAR 5 MG PO (08:18)
[2025-03-26] MEDS: ZOLOFT 50 MG PO (08:18)
[2025-03-26] MEDS: FLOMAX 0.4 MG PO (08:18)
[2025-03-26] MEDS: STERILE WATER FOR INJECTION 10 ML IV (10:10)
[2025-03-26] MEDS: ROCEPHIN 1000 MG IV (10:10)
--- NOTE | 2025-03-26 10:21 | W.PN.NEPH.PH ---
Today's Communication / Plan
-
see plan
Assessment/Plan
-
IMP:
Urinary retention
HASMUKH with CKD 3b baseline cr 1.7-1.9
Chronic Hyperkalemia
Azotemia +/- uremia
Hyponatremia
Transaminitis
mild non gap met acidosis
Leukocytosis
Acute metabolic encephalopathy
Hypothyroidism
Hypertension
Minor nodular thickening versus subcentimeter adenomas in the bilateral adrenal glands on CT
Plan:
mild HASMUKH-from U retention cr slightly up off grigsby
low threshold to reinsert grigsby as he needed SC, follow bladder scan , cont Flomax and finasteride
mild hyperkalemia -monitor
due to his age and limited intake will have no restriction yet
abx per primary for UTI
monitor delirium -seem better today per family, need to be awake during day
BP stable, holding ACEI likely do not resume at d/c too
mild hyponatremia stable, encourage solute intake
follow labs and bladder scan
d/w daughter at bedside
d/w primary
nephro f/u out pt
-
-
Date of Service: March 26, 2025
CC / HPI / ROS
-
Chief Complaint:
HASMUKH
History of Present Illness:
HASMUKH/Cr up at 2.1, k 5.3
grigsby out 03/25 but required SC still ,flomax added and finasteride increased
BP stable
Review of Systems:
sleeping during visit
no fever
no n/v
Labs
-
Labs:
WBC 10.5 10^3/uL (4.8-10.8) 03/26/25 07:10
RBC 4.36 10^6/uL (4.70-6.10) L 03/26/25 07:10
Hgb 13.4 g/dL (13.0-18.0) 03/26/25 07:10
Hct 39.5 % (39.0-52.0) 03/26/25 07:10
Plt Count 198 10^3/uL (130-400) 03/26/25 07:10
Sodium 132 mmol/L (135-145) L 03/26/25 07:10
Potassium 5.3 mmol/L (3.5-5.1) H 03/26/25 07:10
Chloride 103 mmol/L (98-107) 03/26/25 07:10
Carbon Dioxide 27 mmol/L (22-30) 03/26/25 07:10
BUN 61 mg/dl (9-20) H 03/26/25 07:10
Creatinine 2.1 mg/dL (0.7-1.3) H 03/26/25 07:10
eGFR 30.28 03/26/25 07:10
Glucose 98 mg/dl (70-99) 03/26/25 07:10
Calcium 8.7 mg/dl (8.4-10.2) 03/26/25 07:10
Albumin 3.3 g/dl (3.5-5.0) L 03/26/25 07:10
Physical Exam
-
Vital Signs:
Vital Signs
Temp Pulse Resp BP Pulse Ox
97.3 F 65 18 126/57 96
03/26/25 07:50 03/26/25 07:50 03/26/25 07:50 03/26/25 07:50 03/26/25 07:50
Cardiovascular:: Regular rate and rhythm
Respiratory:: Bilateral: CTA (decreased BS anteriorly)
Lung Excursion:: Normal
Abdomen:: Nontender and Soft
Bowel Sounds:: Normal
Extremity Edema:: None: Bilateral:
Grigsby Catheter: No
--- NOTE | 2025-03-26 10:46 | CM ---
CM spoke with patient's daughter who reports that patient lives with and delivery person (16 hours/day) in [address] with basement which is locked due to pt's dementia, so patient cannot access the basement. Basement and exterior doors are locked
by caregiver overnight, and patient will often be awake 2 hrs prior to caregiver waking. Per daughter, patient would typically provide some assistance to spouse up until two weeks ago when he started decline. Prior to decline he was using a RW in
the home.
Plan: Discharge to home with and caregiver.
[2025-03-26 14:45] VITALS: BP 90/51
[2025-03-26 14:56] VITALS: BP 92/50
--- NOTE | 2025-03-26 15:00 | PTCARENOTE ---
Pt OOB in chair, called into room by pt's daughter. Pt looked quite pale, was yawning but not exactly responding. Assisted x 2 back into bed and pt then responded and said a few words. B/P initially was 90/51, p-60. Pt also noted to have some
flatulence so he may have vagal episode. Color returned and pt opened eyes and said ' You're welcome'. B/P 92/50, p-57. Dr Nunez made aware.
[2025-03-26 15:27] VITALS: BP 113/62; PULSE 62; O2SAT 94
--- NOTE | 2025-03-26 15:43 | W.PN.HOSP.TC ---
Today's Communication/Plan
-
ECHO
LR bolus
orthostatics tomorrow
Abx
switch Seroquel to qpm prn
Assessment / Plan
Assessment / Plan
Physical Exam
General: Well Developed and Well Nourished
HEENT: NormoCephalic
Respiratory: Clear
Cardiac: S1/S2 and Regular Rhythm
GI: Non Tender
Musculoskeletal: No Clubbing
Skin: Other (Scattered bruising to bilateral legs scattered bruising to right arm with mild skin tear)
: Grigsby in place draining yellow urine
Neuro: AO x 3
Hematologic/Lymphatic: No Lymphadenopathy
84-year-old male with past medical history of hypertension, hypothyroidism, BPH now presenting for frequent falls and altered mental status found to have HASMUKH, urinary retention
PLAN:
#Urinary retention
- has hx of TURBT in 2017, Follows Dr. Varma
� Drained 788 cc status post Grigsby
� CT abdomen pelvis negative for Obstruction - no hydro or obstruction
� Failed TOV
� Add tamsulosin
� Continue finasteride, switch to daily
� Continue to monitor urine output
-Family does not believe OP grigsby is practical given his dementia
-F/u urology outpt
#HASMUKH on CKD3b
#Hyperkalemia
#Uremia
-improving although with failing TOV - K went up
-S/p Bicarb solution
� Secondary to urinary retention, postrenal etiology
� Monitor BMP with Grigsby placement
� Hold nephrotoxic agents
-Nephro consulted
-may require bicarb tablets manager intermediate
#UTI, complicated - E-Coli
#Sepsis with Source(urine) and organ dysfunction (encephalopathy)
-cont abx - 3 day course
-maintain map >65
#Hyponatremia, improving
� Secondary to urinary retention
� Improved with grigsby placement - monitor
Transaminitis, improving
� Mild
� Continue to monitor
� No abdominal pain
#Leukocytosis
� Most likely reactive
� Continue to monitor fever curve, white count
-improving
#Acute metabolic encephalopathy
#Delirium
� Secondary to HASMUKH, uremia in setting of elevated BUN along with hospitalization related delirium +/- UTI
� Continue to monitor with resuscitation
� PT OT
-Treat with abx
-ct head unremarkable 03/23
#Syncopal Episode
-likely vagal - no chest pain
-LR bolus now
-+/- ECHO
-Orthostatics tomorrow
-EKG
-CT head unremarkable 03/23
#Hypothyroidism
� TSH wnl
� Continue Synthroid
#Hypertension�hold lisinopril due to HASMUKH
#DVT prophylaxis
� HSQ
Total time spent on today's encounter was 53 minutes which included time spent in counseling the patient/family regarding diagnosis and treatment plan as listed above, goals of care, and symptom management. Case was discussed with nursing staff,
specialists, and care coordinators/case management. All labs and imaging personally reviewed by me. Remainder the time spent in detailed review of previous records, lab data, imaging, and other medical provider documentation.
Anticipated Discharge: 24 - 48 hours
Subjective/Interval History
-
Date of Service: March 26, 2025
off restraints; had vagal episode this afternoon - mental status returned after episode.
Objective Data
-
Labs:
Laboratory Results
03/26/25
07:10
WBC 10.5
Hgb 13.4
Hct 39.5
Plt Count 198
Sodium 132 L
Potassium 5.3 H
Chloride 103
Carbon Dioxide 27
BUN 61 H
Creatinine 2.1 H
Glucose 98
Calcium 8.7
Total Bilirubin 0.6
AST 55
ALT 60 H
Alkaline Phosphatase 120
Vital Signs:
Vital Signs
Temp Pulse Resp BP Pulse Ox
97.3 F 57 18 92/50 96
03/26/25 07:50 03/26/25 14:56 03/26/25 07:50 03/26/25 14:56 03/26/25 14:56
I&O
03/25/25 03/26/25 03/27/25
06:59 06:59 06:59
Intake Total 1340 / 1340
Output Total 1425 / 1425 1050 / 1050
Balance -1425 / -1425 290 / 290
Review of Systems
-
History Source: Patient
All other systems: Not reviewed unless documented
Data Reviewed
-
CT Scan: Report Reviewed by me
Labs: Labs Reviewed by me
[2025-03-26] MEDS: LR 1000 IV (17:13)
[2025-03-26 23:00] VITALS: BP 139/66
[2025-03-27] MEDS: SYNTHROID 75 MCG PO (05:59)
[2025-03-27 07:47] VITALS: BP 135/63
[2025-03-27 08:19] LABS: Hematocrit 38.7 % (39.0-52.0); Hemoglobin 13.3 g/dL (13.0-18.0); Mean Corp Hgb Conc. 34.4 g/dL (33.0-37.0); Mean Corpuscular Volume 93.0 fL (80.0-94.0); Platelet Count 175 10^3/uL (130-400); Red Cell Dist. Width 12.3 % (11.5-14.5)
[2025-03-27 08:45] LABS: ALT (SGPT) 52 U/L (0-50); AST (SGOT) 35 U/L (17-59); Albumin 3.1 g/dl (3.5-5.0); Alkaline Phosphatase 121 U/L (38-126); Blood Urea Nitrogen 60 mg/dl (9-20); Calcium 8.7 mg/dl (8.4-10.2); Carbon Dioxide 28 mmol/L (22-30); Chloride 103 mmol/L (98-107); Estimated Creatinine Clearance 22 ml/min; Glucose 91 mg/dl (70-99); Magnesium 2.2 mg/dl (1.6-2.3); Potassium 5.2 mmol/L (3.5-5.1); Sodium 134 mmol/L (135-145); Total Protein 5.6 g/dl (6.3-8.2); eGFR 28.63
[2025-03-27] MEDS: FLOMAX 0.4 MG PO (08:50)
[2025-03-27] MEDS: PROSCAR 5 MG PO (08:50)
[2025-03-27] MEDS: ZOLOFT 50 MG PO (08:50)
[2025-03-27] MEDS: STERILE WATER FOR INJECTION 10 ML IV (08:52)
[2025-03-27] MEDS: ROCEPHIN 1000 MG IV (08:52)
--- NOTE | 2025-03-27 14:10 | W.PN.HOSP.TC ---
Today's Communication/Plan
-
Monitor K, consider Kayexalate - defer to nephro
If stable renally and clearance from nephrology, clear for dc
Assessment / Plan
Assessment / Plan
Physical Exam
General: Well Developed and Well Nourished
HEENT: NormoCephalic
Respiratory: Clear
Cardiac: S1/S2 and Regular Rhythm
GI: Non Tender
Musculoskeletal: No Clubbing
Skin: Other (Scattered bruising to bilateral legs scattered bruising to right arm with mild skin tear)
: Grigsby in place draining yellow urine
Neuro: AO x 3
Hematologic/Lymphatic: No Lymphadenopathy
84-year-old male with past medical history of hypertension, hypothyroidism, BPH now presenting for frequent falls and altered mental status found to have HASMUKH, urinary retention
PLAN:
#Urinary retention
- has hx of TURBT in 2017, Follows Dr. Varma
� Drained 788 cc status post Grigsby
� CT abdomen pelvis negative for Obstruction - no hydro or obstruction
� Failed TOV
� Add tamsulosin
� Continue finasteride, switch to daily
� Continue to monitor urine output
-Family does not believe OP grigsby is practical given his dementia
-F/u urology outpt
#HASMUKH on CKD3b
#Hyperkalemia
#Uremia
-improving although with failing TOV - K went up
-S/p Bicarb solution
� Secondary to urinary retention, postrenal etiology
� Monitor BMP with Grigsby placement
� Hold nephrotoxic agents
-Nephro consulted
- May require Kayexalate daily, defer to nephrology
#UTI, complicated - E-Coli
#Sepsis with Source(urine) and organ dysfunction (encephalopathy)
-cont abx - 5 day course
-maintain map >65
#Hyponatremia, improving
� Secondary to urinary retention
� Improved with grigsby placement - monitor
Transaminitis, improving
� Mild
� Continue to monitor
� No abdominal pain
#Leukocytosis
� Most likely reactive
� Continue to monitor fever curve, white count
-improving
#Acute metabolic encephalopathy
#Delirium
-improved
� Secondary to HASMUKH, uremia in setting of elevated BUN along with hospitalization related delirium +/- UTI
� Continue to monitor with resuscitation
� PT OT
-Treat with abx
-ct head unremarkable 03/23
#Syncopal Episode
-likely vagal - no chest pain
-LR bolus now
-+/- ECHO
-Orthostatics tomorrow
-EKG
-CT head unremarkable 03/23
#Hypothyroidism
� TSH wnl
� Continue Synthroid
#Hypertension�hold lisinopril due to HASMUKH
#DVT prophylaxis
� HSQ
Anticipated Discharge: Within 24 hours
Subjective/Interval History
-
Date of Service: March 27, 2025
Mental status greatly improved
Objective Data
-
Labs:
Laboratory Results
03/27/25
07:22
WBC 11.5 H
Hgb 13.3
Hct 38.7 L
Plt Count 175
Sodium 134 L
Potassium 5.2 H
Chloride 103
Carbon Dioxide 28
BUN 60 H
Creatinine 2.2 H
Glucose 91
Calcium 8.7
Total Bilirubin 0.5
AST 35
ALT 52 H
Alkaline Phosphatase 121
Vital Signs:
Vital Signs
Temp Pulse Resp BP Pulse Ox
97.8 F 67 18 135/63 96
03/27/25 07:47 03/27/25 07:47 03/27/25 07:47 03/27/25 07:47 03/27/25 07:47
I&O
03/26/25 03/27/25 03/28/25
06:59 06:59 06:59
Intake Total 1340 / 1340 2039 / 2039
Output Total 1050 / 1050 1150 / 1150
Balance 290 / 290 890 / 890
Review of Systems
-
History Source: Patient
All other systems: Not reviewed unless documented
Data Reviewed
-
CT Scan: Report Reviewed by me
Labs: Labs Reviewed by me
--- NOTE | 2025-03-27 15:16 | W.PN.NEPH.PH ---
Today's Communication / Plan
-
see plan
Assessment/Plan
-
IMP:
Urinary retention
HASMUKH with CKD 3b baseline cr 1.7-1.9
Chronic Hyperkalemia
Azotemia +/- uremia
Hyponatremia
Transaminitis
mild non gap met acidosis
Leukocytosis
Acute metabolic encephalopathy
Hypothyroidism
Hypertension
Minor nodular thickening versus subcentimeter adenomas in the bilateral adrenal glands on CT
Plan:
mild HASMUKH-from U retention cr slightly up off grigsby
failed VT, grigsby reinserted on 03/25
cr slightly higher than baseline but not too far
minimal hyperkalemia-dose LOkelma
abx per primary for UTI
AMS seem better today
BP stable, holding ACEI likely do not resume at d/c too
mild hyponatremia improving, encourage solute intake
follow labs
if stable or improving renal function ok to d/c tomorrow
d/w daughter at bedside -who wants her father to walk independently before going home
nephro f/u out pt
-
-
Date of Service: March 27, 2025
CC / HPI / ROS
-
Chief Complaint:
HASMUKH
History of Present Illness:
HASMUKH/Cr up at 2.2, k 5.2
grigsby out 03/25 but failed, back on foleyl ,flomax added and finasteride increased
BP stable
Review of Systems:
no cp or osb
no fever
no n/v
Labs
-
Labs:
WBC 11.5 10^3/uL (4.8-10.8) H 03/27/25 07:22
RBC 4.16 10^6/uL (4.70-6.10) L 03/27/25 07:22
Hgb 13.3 g/dL (13.0-18.0) 03/27/25 07:22
Hct 38.7 % (39.0-52.0) L 03/27/25 07:22
Plt Count 175 10^3/uL (130-400) 03/27/25 07:22
Sodium 134 mmol/L (135-145) L 03/27/25 07:22
Potassium 5.2 mmol/L (3.5-5.1) H 03/27/25 07:22
Chloride 103 mmol/L (98-107) 03/27/25 07:22
Carbon Dioxide 28 mmol/L (22-30) 03/27/25 07:22
BUN 60 mg/dl (9-20) H 03/27/25 07:22
Creatinine 2.2 mg/dL (0.7-1.3) H 03/27/25 07:22
eGFR 28.63 03/27/25 07:22
Glucose 91 mg/dl (70-99) 03/27/25 07:22
Calcium 8.7 mg/dl (8.4-10.2) 03/27/25 07:22
Albumin 3.1 g/dl (3.5-5.0) L 03/27/25 07:22
Physical Exam
-
Vital Signs:
Vital Signs
Temp Pulse Resp BP Pulse Ox
97.8 F 67 18 135/63 96
03/27/25 07:47 03/27/25 07:47 03/27/25 07:47 03/27/25 07:47 03/27/25 07:47
Cardiovascular:: Regular rate and rhythm
Respiratory:: Bilateral: CTA (decreased BS anteriorly)
Lung Excursion:: Normal
Abdomen:: Nontender and Soft
Bowel Sounds:: Normal
Extremity Edema:: None: Bilateral:
Grigsby Catheter: Yes
[2025-03-27 15:28] VITALS: BP 112/48
[2025-03-27] MEDS: LOKELMA 5 GRAM PO (15:39)
[2025-03-27] MEDS: HEPARIN 5000 UNITS SC (15:39)
[2025-03-27] MEDS: SEROQUEL 12.5 MG PO (20:12)
--- NOTE | 2025-03-27 22:20 | W.PN.UPDATE ---
Update Note
Progress Note Update
RN reports patient bed alarm was going off and then found patient on the floor in a praying position with knees on the ground. Patient seen and evaluated.
Ox3 at present, he states he was trying to turn the bright light off and then he couldn't move further due to the tube (Dunlap) and then place himself on to the floor. He denies hitting head or anywhere in the body
old bruises noted, no new bruises cuts or swelling anywhere in the body.
10-15 minutes later patient tried to get up again setting bed alarm off.
Patient is calm and cooperative, will place him on Ruth chair watching football.
stable VS.
[2025-03-27 23:00] VITALS: BP 135/59
[2025-03-28] MEDS: HEPARIN 5000 UNITS SC ×3 (00:18→17:05)
--- NOTE | 2025-03-28 02:55 | FALL ---
Description of Fall:
Patient making several attempts to get out of bed by himself - bed alarm ringing as he would get himself to the edge of the bed and ask to use the bathroom to urinate; patient has a grigsby catheter and RN educated patient on the purpose of his grigsby
and that he does not need to get out of bed to urinate. He is very confused but was able to be redirected back into bed each time. Patient was given his evening dose of prn seroquel 12.5mg at 2012 this evening. Patient continued to try to get out
of bed. All nurses and techs were assisting other patients when patient's bed alarm went off again. When this RN heard the bed alarm she went into the room and found patient kneeling on the floor with his head on the bed, saying he 'needed to get
up'. Patient placed back in bed with x2 assist from floor. HOSE OPERATOR and nursing janitorial supervisor notified that patient fell and no injuries were noted, as well as no head strike that was witnessed. Bed alarm remains in place and HOSE OPERATOR ordered Ruth chair as the
patient continued to try to get up after he was placed back into bed after fall. Patient placed in Ruth chair and brought to nurse's station for closer observation, as his room was far from the nurse's station.
Injuries Noted:
None
Action Taken:
Bed alarm remains in place.
Ruth chair restraint ordered and patient placed at nurse's station in Ruth chair.
Name of Provider Notified: Lennox BUCHANAN
[2025-03-28] MEDS: SYNTHROID 75 MCG PO (05:29)
[2025-03-28] MEDS: FLOMAX 0.4 MG PO (07:51)
[2025-03-28] MEDS: PROSCAR 5 MG PO (07:51)
[2025-03-28] MEDS: ZOLOFT 50 MG PO (07:51)
[2025-03-28 08:05] VITALS: BP 142/58
[2025-03-28 08:40] LABS: Hematocrit 38.2 % (39.0-52.0); Hemoglobin 12.9 g/dL (13.0-18.0); Mean Corp Hgb Conc. 33.8 g/dL (33.0-37.0); Mean Corpuscular Volume 92.5 fL (80.0-94.0); Platelet Count 182 10^3/uL (130-400); Red Cell Dist. Width 12.2 % (11.5-14.5)
[2025-03-28 09:11] LABS: ALT (SGPT) 51 U/L (0-50); AST (SGOT) 40 U/L (17-59); Albumin 3.3 g/dl (3.5-5.0); Alkaline Phosphatase 135 U/L (38-126); Blood Urea Nitrogen 53 mg/dl (9-20); Calcium 8.7 mg/dl (8.4-10.2); Carbon Dioxide 25 mmol/L (22-30); Chloride 100 mmol/L (98-107); Estimated Creatinine Clearance 24 ml/min; Glucose 88 mg/dl (70-99); Potassium 4.9 mmol/L (3.5-5.1); Sodium 129 mmol/L (135-145); Total Protein 6.0 g/dl (6.3-8.2); eGFR 32.10
--- NOTE | 2025-03-28 11:07 | W.PN.NEPH.PH ---
Today's Communication / Plan
-
follow labs, FR
Assessment/Plan
-
IMP:
Urinary retention
HASMUKH with CKD 3b baseline cr 1.7-1.9
Chronic Hyperkalemia
Azotemia +/- uremia
Hyponatremia
Transaminitis
mild non gap met acidosis
Leukocytosis
Acute metabolic encephalopathy
Hypothyroidism
Hypertension
Minor nodular thickening versus subcentimeter adenomas in the bilateral adrenal glands on CT
Plan:
mild HASMUKH-from U retention cr stable at 2
failed VT, grigsby reinserted on 03/25
hyperkalemia-improved s/p LOkelma
abx per primary for UTI
BP stable, holding ACEI likely do not resume at d/c too
mild hyponatremia-FR and encourage solute intake
follow labs
d/w daughter at bedside -who wants her father to walk independently before going home
nephro f/u out pt
-
-
Date of Service: March 28, 2025
CC / HPI / ROS
-
Chief Complaint:
HASMUKH
History of Present Illness:
HASMUKH/Cr better at 2, k 4.9
grigsby out 03/25 but failed, back on foleyl ,flomax added and finasteride increased
BP stable
found on floor last night
Review of Systems:
no cp or osb
no fever
no n/v
Labs
-
Labs:
WBC 11.5 10^3/uL (4.8-10.8) H 03/28/25 08:25
RBC 4.13 10^6/uL (4.70-6.10) L 03/28/25 08:25
Hgb 12.9 g/dL (13.0-18.0) L 03/28/25 08:25
Hct 38.2 % (39.0-52.0) L 03/28/25 08:25
Plt Count 182 10^3/uL (130-400) 03/28/25 08:25
Sodium 129 mmol/L (135-145) L 03/28/25 08:25
Potassium 4.9 mmol/L (3.5-5.1) 03/28/25 08:25
Chloride 100 mmol/L (98-107) 03/28/25 08:25
Carbon Dioxide 25 mmol/L (22-30) 03/28/25 08:25
BUN 53 mg/dl (9-20) H 03/28/25 08:25
Creatinine 2.0 mg/dL (0.7-1.3) H 03/28/25 08:25
eGFR 32.10 03/28/25 08:25
Glucose 88 mg/dl (70-99) 03/28/25 08:25
Calcium 8.7 mg/dl (8.4-10.2) 03/28/25 08:25
Albumin 3.3 g/dl (3.5-5.0) L 03/28/25 08:25
Physical Exam
-
Vital Signs:
Vital Signs
Temp Pulse Resp BP Pulse Ox
97.3 F 75 16 142/58 96
03/28/25 08:05 03/28/25 08:05 03/28/25 08:05 03/28/25 08:05 03/28/25 08:05
Cardiovascular:: Regular rate and rhythm
Respiratory:: Bilateral: CTA (decreased BS anteriorly)
Lung Excursion:: Normal
Abdomen:: Nontender and Soft
Bowel Sounds:: Normal
Extremity Edema:: None: Bilateral:
Grigsby Catheter: Yes
[2025-03-28] MEDS: ROCEPHIN 1000 MG IV (11:33)
[2025-03-28] MEDS: STERILE WATER FOR INJECTION 10 ML IV (11:33)
--- NOTE | 2025-03-28 13:44 | W.PN.HOSP.TC ---
Today's Communication/Plan
-
monitor Na
F/u renal recs
Seroquel 12.5mg qhs
monitor Scr, K
Assessment / Plan
Assessment / Plan
Physical Exam
General: Well Developed and Well Nourished
HEENT: NormoCephalic
Respiratory: Clear
Cardiac: S1/S2 and Regular Rhythm
GI: Non Tender
Musculoskeletal: No Clubbing
Skin: Other (Scattered bruising to bilateral legs scattered bruising to right arm with mild skin tear)
: Grigsby in place draining yellow urine
Neuro: AO x 3
Hematologic/Lymphatic: No Lymphadenopathy
84-year-old male with past medical history of hypertension, hypothyroidism, BPH now presenting for frequent falls and altered mental status found to have HASMUKH, urinary retention
PLAN:
#Urinary retention
- has hx of TURBT in 2017, Follows Dr. Varma
� Drained 788 cc status post Grigsby
� CT abdomen pelvis negative for Obstruction - no hydro or obstruction
� Failed TOV
� Add tamsulosin
� Continue finasteride, switch to daily
� Continue to monitor urine output
-Family does not believe OP grigsby is practical given his dementia
-F/u urology outpt
#HASMUKH on CKD3b
#Hyperkalemia
#Uremia
-improving although with failing TOV - K went up
-S/p Bicarb solution
� Secondary to urinary retention, postrenal etiology
� Monitor BMP with Grigsby placement
� Hold nephrotoxic agents
-Nephro consulted
#UTI, complicated - E-Coli
#Sepsis with Source(urine) and organ dysfunction (encephalopathy)
-cont abx - 5 day course
-maintain map >65
#Hyponatremia, improving although dipped again
� Secondary to urinary retention
� Initially Improved with grigsby placement - monitor
-nephro recs
Transaminitis, improving
� Mild
� Continue to monitor
� No abdominal pain
#Leukocytosis
� Most likely reactive
� Continue to monitor fever curve, white count
-improving
#Acute metabolic encephalopathy
#Delirium
-improved
� Secondary to HASMUKH, uremia in setting of elevated BUN along with hospitalization related delirium +/- UTI
� Continue to monitor with resuscitation
� PT OT
-Treat with abx
-ct head unremarkable 03/23
-Start Seroquel 12.5mg qhs
#Syncopal Episode
-likely vagal - no chest pain
-LR bolus now
-ECHO WNL - no acute findings; LVEF 60-65%
-Orthostatics
-EKG
-CT head unremarkable 03/23
#Hypothyroidism
� TSH wnl
� Continue Synthroid
#Hypertension�stop lisinopril due to HASMUKH, hyperkalemia
#DVT prophylaxis
� HSQ
Anticipated Discharge: Within 24 hours
Subjective/Interval History
-
Date of Service: March 28, 2025
Found on floor, no headstrike laast night; AAOx 1-2 today
Objective Data
-
Labs:
Laboratory Results
03/28/25
08:25
WBC 11.5 H
Hgb 12.9 L
Hct 38.2 L
Plt Count 182
Sodium 129 L
Potassium 4.9
Chloride 100
Carbon Dioxide 25
BUN 53 H
Creatinine 2.0 H
Glucose 88
Calcium 8.7
Total Bilirubin 0.7
AST 40
ALT 51 H
Alkaline Phosphatase 135 H
Vital Signs:
Vital Signs
Temp Pulse Resp BP Pulse Ox
97.3 F 75 16 142/58 96
03/28/25 08:05 03/28/25 08:05 03/28/25 08:05 03/28/25 08:05 03/28/25 08:05
I&O
03/27/25 03/28/25 03/29/25
06:59 06:59 06:59
Intake Total 2040 / 2040 400 / 400 480 / 480
Output Total 1150 / 1150 600 / 600
Balance 890 / 890 -200 / -200 480 / 480
Review of Systems
-
History Source: Patient
All other systems: Not reviewed unless documented
Data Reviewed
-
CT Scan: Report Reviewed by me
Labs: Labs Reviewed by me
--- NOTE | 2025-03-28 13:54 | CM ---
Addendum entered by Yesenia Woodard 03/28/25 16:03:
referrals sent via all scripts
Original Note:
Patient seen on . patient daughter also present. patient daughter requested referrals to [facility]. Patient daughter stated that patient would need short stay at SNF prior to returning to home with . Patient
family currently had aides 7a-11p and would increase the aides for overnight support if appropriate. CM will continue to follow for discharge planning needs.
Plan; SNF; pending bed availability.
[2025-03-28] MEDS: SEROQUEL 12.5 MG PO ×2 (14:38→17:07)
[2025-03-28 15:30] VITALS: BP 99/57
--- NOTE | 2025-03-28 21:20 | PTCARENOTE ---
Assumed care of pt at 1900. Pt OOB in saji chair at nurses station at start of shift. Pt oriented to self only, attempted to reorient to time/place/situation but pt does not retain this information. Auditory/visual hallucinations at times--pt having
conversations with people who are not there. Pt assisted back to bed, was max assist (2-3 staff members + walker), pt very unsteady and ultimately needed to be placed in a wheelchair, then was max assist to transfer into bed. Bed alarm activated.
Dunlap care performed, gown changed. Physical assessment as charted in nursing shift assessment flowsheet.
[2025-03-28 23:28] VITALS: BP 110/46
[2025-03-29] MEDS: HEPARIN 5000 UNITS SC ×4 (00:04→23:29)
[2025-03-29] MEDS: SYNTHROID 75 MCG PO (05:10)
[2025-03-29 07:30] VITALS: BP 113/41
[2025-03-29] MEDS: PROSCAR 5 MG PO (07:35)
[2025-03-29 07:38] LABS: Hematocrit 33.5 % (39.0-52.0); Hemoglobin 11.4 g/dL (13.0-18.0); Mean Corp Hgb Conc. 34.0 g/dL (33.0-37.0); Mean Corpuscular Volume 92.0 fL (80.0-94.0); Platelet Count 202 10^3/uL (130-400); Red Cell Dist. Width 11.9 % (11.5-14.5)
[2025-03-29] MEDS: FLOMAX 0.4 MG PO (07:38)
[2025-03-29] MEDS: ZOLOFT 50 MG PO (07:38)
[2025-03-29 08:03] LABS: ALT (SGPT) 46 U/L (0-50); AST (SGOT) 49 U/L (17-59); Albumin 3.0 g/dl (3.5-5.0); Alkaline Phosphatase 127 U/L (38-126); Blood Urea Nitrogen 54 mg/dl (9-20); Calcium 8.6 mg/dl (8.4-10.2); Carbon Dioxide 23 mmol/L (22-30); Chloride 101 mmol/L (98-107); Estimated Creatinine Clearance 23 ml/min; Glucose 74 mg/dl (70-99); Potassium 4.8 mmol/L (3.5-5.1); Sodium 130 mmol/L (135-145); Total Protein 5.5 g/dl (6.3-8.2); eGFR 30.28
[2025-03-29] MEDS: ROCEPHIN 1000 MG IV (10:03)
[2025-03-29] MEDS: STERILE WATER FOR INJECTION 10 ML IV (10:03)
--- NOTE | 2025-03-29 10:05 | W.PN.HOSP.TC ---
Today's Communication/Plan
-
see bold
Assessment / Plan
Assessment / Plan
HPI: 84-year-old male with past medical history of hypertension, hypothyroidism, BPH now presenting for frequent falls and altered mental status found to have HASMUKH, urinary retention
Assessment/plan:
#Urinary retention
- has hx of TURBT in 2017, Follows Dr. Varma
� Drained 788 cc status post Grigsby
� CT abdomen pelvis negative for Obstruction - no hydro or obstruction
� Failed TOV, added tamsulosin, continue finasteride, switched to daily
� Repeat TOV today, if pt fails - will need to be dc w/ grigsby
- C/s urology
#HASMUKH on CKD3b
#Hyperkalemia
#Uremia
-S/p Bicarb solution
�Secondary to urinary retention, postrenal etiology
�Appreciate nephrology input, creatinine near baseline
�Hold nephrotoxic agents
#UTI, complicated - E-Coli
#Sepsis with Source(urine) and organ dysfunction (encephalopathy)
- Status post 5-day course of antibiotics
#Hyponatremia
� Secondary to urinary retention
� Continue fluid restriction, trend sodium
Transaminitis, improving
� Mild
� Continue to monitor
� No abdominal pain
#Leukocytosis
� Most likely reactive
� Continue to monitor fever curve, white count
-improving
#Acute metabolic encephalopathy
#Delirium
#Dementia with behavioral disturbance
� Secondary to HASMUKH, uremia in setting of elevated BUN along with hospitalization related delirium +/- UTI
- CT head unremarkable 03/23
- Increase Seroquel 25 mg qhs, c/s psychiatry
#Syncopal Episode
-likely vagal - no chest pain
-ECHO WNL - no acute findings; LVEF 60-65%
-CT head unremarkable 03/23
#Hypothyroidism
� TSH wnl
� Continue Synthroid
#Hypertension
�stopped lisinopril due to HASMUKH, hyperkalemia
- Patient is normotensive without BP medications
DVT prophylaxis � HSQ
Full Code
Updated daughter 03/29
Physical Exam
General: Well Developed and Well Nourished
HEENT: NormoCephalic
Respiratory: Clear
Cardiac: S1/S2 and Regular Rhythm
GI: Non Tender
Musculoskeletal: No Clubbing
Skin: (Scattered bruising to bilateral legs scattered bruising to right arm with mild skin tear)
Neuro: AO x 3
Hematologic/Lymphatic: No Lymphadenopathy
Anticipated Discharge: Within 24 hours
Subjective/Interval History
-
Date of Service: March 29, 2025
Patient currently sleeping. Apparently had a rough night, and did not sleep well. No fever, no vomiting.
Objective Data
-
Labs:
Laboratory Results
03/23/25 03/24/25 03/25/25
13:10 07:14 07:33
WBC 12.8 H 12.3 H 11.9 H
Hgb 13.3 13.0 13.7
Hct 40.1 38.3 L 39.1
Plt Count 224 208 204
Sodium 128 L 128 L 133 L
Potassium 5.4 H 4.7 4.8
Chloride 101 100 104
Carbon Dioxide 20 L 24 26
BUN 80 H 62 H 59 H
Creatinine 2.4 H 2.0 H 1.9 H
Glucose 104 H 88 87
Calcium 9.1 8.6 9.0
Total Bilirubin 1.1 1.3 1.1
AST 112 H 94 H 86 H
ALT 59 H 60 H 69 H
Alkaline Phosphatase 95 104 114
03/26/25 03/27/25 03/29/25
07:10 07:22 06:38
WBC 10.5 11.5 H 10.5
Hgb 13.4 13.3 11.4 L
Hct 39.5 38.7 L 33.5 L
Plt Count 198 175 202
Sodium 132 L 134 L 130 L
Potassium 5.3 H 5.2 H 4.8
Chloride 103 103 101
Carbon Dioxide 27 28 23
BUN 61 H 60 H 54 H
Creatinine 2.1 H 2.2 H 2.1 H
Glucose 98 91 74
Calcium 8.7 8.7 8.6
Total Bilirubin 0.6 0.5 0.5
AST 55 35 49
ALT 60 H 52 H 46
Alkaline Phosphatase 120 121 127 H
Vital Signs:
Vital Signs
Temp Pulse Resp BP Pulse Ox
97.5 F 92 16 113/41 98
03/29/25 07:30 03/29/25 07:30 03/29/25 07:30 03/29/25 07:30 03/29/25 07:30
I&O
03/28/25 03/29/25 03/30/25
06:59 06:59 06:59
Intake Total 400 / 400 980 / 980
Output Total 600 / 600 1000 / 1000
Balance -200 / -200 -20 / -20
--- NOTE | 2025-03-29 11:06 | W.PN.NEPH.PH ---
Today's Communication / Plan
-
Follow BMP
Maintain fluid restrict
If voiding trial fails would contact urology maintain Flomax and finasteride
Assessment/Plan
-
IMP:
Urinary retention
HASMUKH with CKD 3b baseline cr 1.7-1.9
Chronic Hyperkalemia
Azotemia +/- uremia
Hyponatremia
Transaminitis
mild non gap met acidosis
Leukocytosis
Acute metabolic encephalopathy
Hypothyroidism
Hypertension
Minor nodular thickening versus subcentimeter adenomas in the bilateral adrenal glands on CT
Plan:
mild HASMUKH-from U retention cr stable at 2.1
Sodium at 130
failed VT, grigsby reinserted on 03/25
hyperkalemia-improved s/p LOkelma
abx per primary for UTI
BP stable, holding ACEI likely do not resume at d/c too
mild hyponatremia-FR and encourage solute intake
follow labs
d/w daughter at bedside -who wants her father to walk independently before going home
If patient fails voiding trial again today then he will need Grigsby catheter and urology follow-up, he normally sees Dr. Baez
nephro f/u out pt
-
-
Date of Service: March 29, 2025
CC / HPI / ROS
-
Chief Complaint:
HASMUKH
History of Present Illness:
HASMUKH/Cr better at 2.2 , k normal
Currently undergoing voiding trial
BP stable
Review of Systems:
no cp or osb
no fever
no n/v
Grigsby catheter is out
Mental status still not at baseline per daughter
Labs
-
Labs:
WBC 10.5 10^3/uL (4.8-10.8) 03/29/25 06:38
RBC 3.64 10^6/uL (4.70-6.10) L 03/29/25 06:38
Hgb 11.4 g/dL (13.0-18.0) L 03/29/25 06:38
Hct 33.5 % (39.0-52.0) L 03/29/25 06:38
Plt Count 202 10^3/uL (130-400) 03/29/25 06:38
Sodium 130 mmol/L (135-145) L 03/29/25 06:38
Potassium 4.8 mmol/L (3.5-5.1) 03/29/25 06:38
Chloride 101 mmol/L (98-107) 03/29/25 06:38
Carbon Dioxide 23 mmol/L (22-30) 03/29/25 06:38
BUN 54 mg/dl (9-20) H 03/29/25 06:38
Creatinine 2.1 mg/dL (0.7-1.3) H 03/29/25 06:38
eGFR 30.28 03/29/25 06:38
Glucose 74 mg/dl (70-99) 03/29/25 06:38
Calcium 8.6 mg/dl (8.4-10.2) 03/29/25 06:38
Albumin 3.0 g/dl (3.5-5.0) L 03/29/25 06:38
Physical Exam
-
Vital Signs:
Vital Signs
Temp Pulse Resp BP Pulse Ox
97.5 F 92 16 113/41 98
03/29/25 07:30 03/29/25 07:30 03/29/25 07:30 03/29/25 07:30 03/29/25 07:30
Cardiovascular:: Regular rate and rhythm
Respiratory:: Bilateral: CTA (decreased BS anteriorly)
Lung Excursion:: Normal
Abdomen:: Nontender and Soft
Bowel Sounds:: Normal
Extremity Edema:: None: Bilateral:
Grigsby Catheter: No
[2025-03-29 11:18] VITALS: BP 116/58
--- NOTE | 2025-03-29 12:21 | CM ---
Reviewed chart and spoke withe dtr bedside. Pt was sleeping at this time. Continues on IV ABX and has a low Na+.
Family wants healthcare team to be aware that this pt is usually independent in ADLs, and helps care for his at home. Prior to hospitalization is was awake, alert and oriented with forgetful episodes.
No SNF bed at this time. Waiting for responses from [facility]
Plan: DC to SNF when pt is stable and bed is available
--- NOTE | 2025-03-29 13:18 | CON.MD ---
Consultation - Medical
-
patient seen chart reviewed. discussed with nursing. this consult done today mar 29 2025. patient is an 84 year old male. d at bedside son on speaker phone. patient was doing reasonably well til about a month ago. he was able to manage his daily life
and help care for his although there is a tower loader operator in the home mostly for her. d says he became weaker. he fell a few times and they noted he was less alert and functional. he was brought here for confusion after having fallen again. a
number of issues noted low sodium high potassium high creatinine mild inc lft's he has hx of htn hypothroid bph. he was sleeping deeply when i came to visit him and did not waken at all despite the fact that we were talking for quite some time at
the bedside. he has had periods of agitation and irritability here at and nursing tells me they could not get him to take seroquel which was prescribed. d describes that she had consulted his pcp as she noted when she moved in with him that he
had a lot of ocd traits. constantly checking the heat, the water heater etc he was presribed zoloft not sure of dose or amount of time he took it but it did not help so it was ok'ed. the family has been stressed by the cognitive decline of
patient's for the past one year plus. the d stresses that she does not feel her father has dementia at this point but that there has been an acute change in cognition only recently. a code purple had been called here since admit hence this
consult patient had received im zyprexa for agitation
past psych hx see above
medical hx patient with hx ckd cr 2.5 on admit mild inc lft's htn hypothyroid bph adrenal gland nodules urinary retention today NA 130 hgb 11.4 mild anemia cr 2.1 improved since admit. uti rx rocephin cat head no acute changes
atelectasis on cxr tsh okay
family hx denied
substance abuse one beer daily
social resides w and tower loader operator two kids came from [place] in 1955 built a life here. 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 has dementia
mse unable to interview patient as he was sleeping deeply
dx tme secondary to underlying medical illness r/o incipient dementia r.o other psych illness eg ocd
plan at this point would use risperdal prn agitation. discussed with d that there are many underlying medical issues that may need to be addressed. only afterward can his psych issues be addressed. she does have the name of a psychologist who does
neuro psych testing (he saw patient's ) would recommend risperdal m tabs or liquid 0.5 mg prn agitation. discussed issue of black box warning for elderly with dementia. check b12 folate will follow
[2025-03-29 15:27] VITALS: BP 106/46
--- NOTE | 2025-03-29 16:23 | W.PN.URO.CBU ---
Today's Communication / Plan
-
home with grigsby
Assessment / Plan
-
cachecctic frail male distended 575 cc ib=n bladder will place grigsby d/c wth grigsby as failing gtrial of void
Diagnosis
-
Date of Service: March 29, 2025
-
Patient Diagnosis:bph and acute urinary retention despite flomax and finasteride
Post Op Day:
Subjective
-
cannnot void feels full
Objective
-
Vital Signs
Temp Pulse Resp BP Pulse Ox
98.7 F 79 16 106/46 97
03/29/25 15:27 03/29/25 15:27 03/29/25 15:27 03/29/25 15:27 03/29/25 15:27
Intake and Output
03/28/25 03/29/25 03/30/25
06:59 06:59 06:59
Intake Total 400 / 400 980 / 980
Output Total 600 / 600 1000 / 1000
Balance -200 / -200 -20 / -20
Intake:
Oral fluids 400 / 400 980 / 980
Output:
Urine, Grigsby 600 / 600 1000 / 1000
Other:
How many times incontinent 1
SATURATED amount urine
Laboratory Results
03/29/25 06:38
03/29/25 06:38
Review of Systems
-
: Difficulty Voiding
Physical Exam
-
General - well developed, well nourished, no acute distress
Chest - clear bilaterally
Abdomen - soft, non-tender, positive bowel sounds, no CVAT, no incisional pain or distention
Genitalia - normal
Rectal - normal
Skin - warm & dry with no rash
Neuro - AOx3, no motor deficits
Extremities - no clubbing, no cyanosis, no edema
Incision - clean, dry
Dressing - clean, dry, intact
Counseling
-
home when stable with grigsby
Care Review
Data Reviewed
Discussed with: Nursing and Family
CT Scan: Image Pers Reviewed
[2025-03-29 23:47] VITALS: BP 104/55
[2025-03-30] MEDS: RISPERDAL M-TAB (ORALLY DISINTEGRATING) 0.5 MG PO (00:59)
[2025-03-30] MEDS: SYNTHROID 75 MCG PO (05:57)
[2025-03-30 07:30] VITALS: BP 129/69
--- NOTE | 2025-03-30 07:51 | W.PN.HOSP.TC ---
Today's Communication/Plan
-
Discharge to short-term rehab when bed available
Assessment / Plan
Assessment / Plan
HPI: 84-year-old male with past medical history of hypertension, hypothyroidism, BPH now presenting for frequent falls and altered mental status found to have HASMUKH, urinary retention
Assessment/plan:
#Urinary retention
- has hx of TURBT in 2017, Follows Dr. Varma
� Drained 788 cc status post Dunlap
� CT abdomen pelvis negative for Obstruction - no hydro or obstruction
� Failed TOV x 2, added tamsulosin, continue finasteride, switched to daily
� Dunlap reinserted 03/29
- Appreciate urology input, discharge with Dunlap, patient will have an outpatient void trial in the office
#HASMUKH on CKD3b
#Hyperkalemia
#Uremia
-S/p Bicarb solution
�Secondary to urinary retention, postrenal etiology
�Appreciate nephrology input, creatinine near baseline
�Hold nephrotoxic agents
#UTI, complicated - E-Coli
#Sepsis with Source(urine) and organ dysfunction (encephalopathy)
- Finishing 5-day course of antibiotics
#Hyponatremia
� Secondary to urinary retention
� Continue fluid restriction, trend sodium
- Decrease Zoloft from 50 mg daily to 25 mg daily
Transaminitis, improving
� Mild
� Continue to monitor
� No abdominal pain
#Leukocytosis
� Resolved
� Continue to monitor fever curve, white count
#Acute metabolic encephalopathy
#Delirium
#Dementia with behavioral disturbance
� Secondary to HASMUKH, uremia in setting of elevated BUN along with hospitalization related delirium +/- UTI
- CT head unremarkable 03/23
- Appreciate psychiatry input, Seroquel discontinued, patient did receive a dose of as needed Risperdal overnight
- Discontinue as needed Risperdal as per psychiatry
#OCD
- Decrease Zoloft from 50 mg daily to 25 mg daily
#Syncopal Episode
-likely vagal - no chest pain
-ECHO WNL - no acute findings; LVEF 60-65%
-CT head unremarkable 03/23
#Hypothyroidism
� TSH wnl
� Continue Synthroid
#Hypertension
�stopped lisinopril due to HASMUKH, hyperkalemia
- Patient's BP is acceptable without BP medications
DVT prophylaxis � HSQ
Full Code
Updated daughter 03/30
Total time spent to see the patient on the floor, examine the patient, review data and lab results, discuss treatment plan with patient, nursing staff around 50 minutes.
Physical Exam
General: Well Developed and Well Nourished
HEENT: NormoCephalic
Respiratory: Clear
Cardiac: S1/S2 and Regular Rhythm
GI: Non Tender
Musculoskeletal: No Clubbing
Skin: (Scattered bruising to bilateral legs scattered bruising to right arm with mild skin tear)
Neuro: Intermittent confusion & agitation noted
Anticipated Discharge: Within 24 hours
Subjective/Interval History
-
Date of Service: March 30, 2025
Patient alert and awake today. He slept all day yesterday. Denies chest pain, denies shortness of breath. No fever, no vomiting.
Objective Data
-
Labs:
Laboratory Results
03/30/25
06:00
WBC Pending
Hgb Pending
Hct Pending
Plt Count Pending
Sodium Pending
Potassium Pending
Chloride Pending
Carbon Dioxide Pending
BUN Pending
Creatinine Pending
Glucose Pending
Calcium Pending
Vital Signs:
Vital Signs
Temp Pulse Resp BP Pulse Ox
97.1 F 80 18 104/55 93
03/29/25 23:47 03/29/25 23:47 03/29/25 23:47 03/29/25 23:47 03/29/25 23:47
I&O
03/29/25 03/30/25 03/31/25
06:59 06:59 06:59
Intake Total 980 / 980 840 / 840
Output Total 1000 / 1000 1200 / 1200
Balance -20 / -20 -360 / -360
[2025-03-30] MEDS: ZOLOFT 50 MG PO (08:57)
[2025-03-30] MEDS: PROSCAR 5 MG PO (08:57)
[2025-03-30] MEDS: FLOMAX 0.4 MG PO (08:57)
[2025-03-30] MEDS: HEPARIN 5000 UNITS SC ×3 (08:57→23:16)
[2025-03-30 09:06] LABS: Hematocrit 36.2 % (39.0-52.0); Hemoglobin 12.1 g/dL (13.0-18.0); Mean Corp Hgb Conc. 33.4 g/dL (33.0-37.0); Mean Corpuscular Volume 92.8 fL (80.0-94.0); Platelet Count 225 10^3/uL (130-400); Red Cell Dist. Width 12.1 % (11.5-14.5)
--- NOTE | 2025-03-30 09:55 | W.PN.URO.CBU ---
Today's Communication / Plan
-
Finasteride increased to usual dose of 5mg daily
Transfer to [facility] with Dunlap
Will schedule outpatient voiding trial: discussed with patient's daughter
Assessment / Plan
-
BPH: has been taking his medications sporadically
Urine retention
Deconditioning
Diagnosis
-
Date of Service: March 30, 2025
-
Patient Diagnosis:
BPH
Urine retention
Subjective
-
Comfortable
Alert
No catheter bother
Objective
-
Vital Signs
Temp Pulse Resp BP Pulse Ox
97.2 F 78 16 129/69 96
03/30/25 07:30 03/30/25 07:30 03/30/25 07:30 03/30/25 07:30 03/30/25 07:30
Intake and Output
03/29/25 03/30/25 03/31/25
06:59 06:59 06:59
Intake Total 980 / 980 840 / 840
Output Total 1000 / 1000 1200 / 1200
Balance -20 / -20 -360 / -360
Intake:
Oral fluids 980 / 980 840 / 840
Output:
Urine, Dunlap 1000 / 1000
Urine, Voided 1200 / 1200
Laboratory Results
03/30/25 08:40
Review of Systems
-
Constitutional: Fatigue
Respiratory: No Symptoms
Cardiac: No Symptoms
Abdomen/GI: No Symptoms
Musculoskeletal: No Symptoms
Physical Exam
-
General - no acute distress
Abdomen - soft, non-tender
Genitalia - normal with Dunlap draining clear urine
Skin - warm & dry with no rash
Counseling
-
Keep Dunlap
[2025-03-30] MEDS: ROCEPHIN 1000 MG IV (09:57)
[2025-03-30] MEDS: STERILE WATER FOR INJECTION 10 ML IV (09:57)
[2025-03-30 10:23] LABS: Blood Urea Nitrogen 46 mg/dl (9-20); Calcium 9.0 mg/dl (8.4-10.2); Carbon Dioxide 25 mmol/L (22-30); Chloride 103 mmol/L (98-107); Estimated Creatinine Clearance 24 ml/min; Glucose 83 mg/dl (70-99); Potassium 4.5 mmol/L (3.5-5.1); Sodium 134 mmol/L (135-145); eGFR 32.10
--- NOTE | 2025-03-30 12:31 | W.PN.UPDATE ---
Addendum entered and electronically signed by Brigitte Harrell MD 03/30/25 14:49:
noted patient received a prn of risperdal last evening. ?? he did not appear this am or afternoon to be in any psychic distress in fact he appeared perhaps overly relaxed (sleeping) unclear if this was effect of risperdal last evening.
will dc prn for now.
Original Note:
Update Note
Progress Note Update
patient seen chart reviewed. discussed with nursing. mr riddle had a few moments where he was awake and alert and then drifted off the sleep again. d feels his sensorium is clearing. he was started on zoloft 25 mg which is genereally safe w kidney
disease for presumably ocd sx would watch seruml sodium which is up to 134. renal function impaired w creatinine 2.0. d notes that patient's ocd symptomatology does create some disruption in the home with hand or machine paster caring for patient's .
would gingerly increase over the next weeks as 25 mg is a starting dose and generally higher doses needed for ocd rx.
--- NOTE | 2025-03-30 13:05 | W.PN.NEPH.PH ---
Today's Communication / Plan
-
stable for discharge from renal perspective
Assessment/Plan
-
IMP:
Urinary retention
HASMUKH with CKD 3b baseline cr 1.7-1.9
Chronic Hyperkalemia
Azotemia +/- uremia
Hyponatremia
Transaminitis
mild non gap met acidosis
Leukocytosis
Acute metabolic encephalopathy
Hypothyroidism
Hypertension
Minor nodular thickening versus subcentimeter adenomas in the bilateral adrenal glands on CT
Plan:
mild HASMUKH-from U retention cr stable at 2
Sodium at 134
failed VT, grigsby reinserted on 03/25
hyperkalemia-improved s/p LOkelma
abx per primary for UTI
BP stable, holding ACEI likely do not resume at d/c too
mild hyponatremia-FR and encourage solute intake , ssri dose decreased
follow labs
d/w daughter at bedside
If patient fails voiding trial again today then he will need Grigsby catheter and urology follow-up, he normally sees Dr. Baez
nephro f/u out pt
-
-
Date of Service: March 30, 2025
CC / HPI / ROS
-
Chief Complaint:
HASMUKH
History of Present Illness:
HASMUKH/Cr better at 2.0 , k normal
Currently undergoing voiding trial
BP stable
Hyponatremia up to 134
Review of Systems:
no cp or osb
no fever
no n/v
Grigsby catheter is out
Mental status still not at baseline per daughter
Labs
-
Labs:
WBC 7.5 10^3/uL (4.8-10.8) 03/30/25 08:40
RBC 3.90 10^6/uL (4.70-6.10) L 03/30/25 08:40
Hgb 12.1 g/dL (13.0-18.0) L 03/30/25 08:40
Hct 36.2 % (39.0-52.0) L 03/30/25 08:40
Plt Count 225 10^3/uL (130-400) 03/30/25 08:40
Sodium 134 mmol/L (135-145) L 03/30/25 08:40
Potassium 4.5 mmol/L (3.5-5.1) 03/30/25 08:40
Chloride 103 mmol/L (98-107) 03/30/25 08:40
Carbon Dioxide 25 mmol/L (22-30) 03/30/25 08:40
BUN 46 mg/dl (9-20) H 03/30/25 08:40
Creatinine 2.0 mg/dL (0.7-1.3) H 03/30/25 08:40
eGFR 32.10 03/30/25 08:40
Glucose 83 mg/dl (70-99) 03/30/25 08:40
Calcium 9.0 mg/dl (8.4-10.2) 03/30/25 08:40
Albumin 3.0 g/dl (3.5-5.0) L 03/29/25 06:38
Physical Exam
-
Vital Signs:
Vital Signs
Temp Pulse Resp BP Pulse Ox
97.2 F 78 16 129/69 96
03/30/25 07:30 03/30/25 07:30 03/30/25 07:30 03/30/25 07:30 03/30/25 07:30
Cardiovascular:: Regular rate and rhythm
Respiratory:: Bilateral: CTA (decreased BS anteriorly)
Lung Excursion:: Normal
Abdomen:: Nontender and Soft
Bowel Sounds:: Normal
Extremity Edema:: None: Bilateral:
Grigsby Catheter: Yes
--- NOTE | 2025-03-30 13:23 | CM ---
Addendum entered by Sangeetha Barlow 03/30/25 15:44:
Facetime with patient, daughter, admissions at [facility].
Able to accept patient, will need updated OT notes, TT to therapy.
Will submit for auth once therapy notes updated.
Original Note:
CM reviewed chart, patient seen bedside with daughter, Rafa.
Daughter reports patient is doing better today, however is still far from his baseline. Dtr reports patient typically wakes up two hours prior to caregiver arriving to make coffee, breakfast etc.
Dtr requesting [facility] as facility is very close, agreeable to [facility].
Phone call to Augusta archibald, [facility].
Reviewed with cristela Felipe at [facility], will review for ability to accept.
Patient will require insurance auth via [employer].
CM will continue to follow for all d/c planning needs.
Plan; awaiting accepting SNF, will require auth
[2025-03-30 14:10] LABS: Folate 19.4 ng/ml (2.76-20); Vitamin B12 885 pg/ml (239-931)
[2025-03-30 15:30] VITALS: BP 125/57
[2025-03-30 23:30] VITALS: BP 107/64
[2025-03-31] MEDS: SYNTHROID 75 MCG PO (06:09)
[2025-03-31 07:35] VITALS: BP 141/66
[2025-03-31] MEDS: FLOMAX 0.4 MG PO (08:17)
[2025-03-31] MEDS: HEPARIN 5000 UNITS SC ×2 (08:17→23:01)
[2025-03-31] MEDS: ZOLOFT 25 MG PO ×2 (08:17→12:27)
[2025-03-31] MEDS: PROSCAR 5 MG PO (08:17)
[2025-03-31 08:51] VITALS: BP 113/58; PULSE 90; O2SAT 98
[2025-03-31 08:54] VITALS: BP 113/58; PULSE 89; O2SAT 98
--- NOTE | 2025-03-31 09:11 | W.PN.HOSP.TC ---
Today's Communication/Plan
-
Discharge to short-term rehab when insurance authorization has been obtained
Assessment / Plan
Assessment / Plan
HPI: 84-year-old male with past medical history of hypertension, hypothyroidism, BPH now presenting for frequent falls and altered mental status found to have HASMUKH, urinary retention
Assessment/plan:
#Urinary retention
- has hx of TURBT in 2017, Follows Dr. Varma
� Drained 788 cc status post Dunlap
� CT abdomen pelvis negative for Obstruction - no hydro or obstruction
� Failed TOV x 2, added tamsulosin, continue finasteride, switched to daily
� Dunlap reinserted 03/29
- Appreciate urology input, discharge with Dunlap, patient will have an outpatient void trial in the office
#HASMUKH on CKD3b
#Hyperkalemia
#Uremia
-S/p Bicarb solution
�Secondary to urinary retention, postrenal etiology
�Appreciate nephrology input, creatinine near baseline
�Hold nephrotoxic agents
#UTI, complicated - E-Coli
#Sepsis with Source(urine) and organ dysfunction (encephalopathy)
- Finished 5-day course of antibiotics
#Hyponatremia
� Secondary to urinary retention
� Continue fluid restriction, trend sodium
Transaminitis, improving
� Mild
� Continue to monitor
� No abdominal pain
#Leukocytosis
� Resolved
� Continue to monitor fever curve, white count
#Acute metabolic encephalopathy
#Delirium
#Dementia with behavioral disturbance
� Secondary to HASMUKH, uremia in setting of elevated BUN along with hospitalization related delirium +/- UTI
- CT head unremarkable 03/23
- Appreciate psychiatry input, patient no longer needs any Risperdal
#OCD
- Resume previous Zoloft dose of 50 mg daily
#Syncopal Episode
-likely vagal - no chest pain
-ECHO WNL - no acute findings; LVEF 60-65%
-CT head unremarkable 12/2
#Hypothyroidism
� TSH wnl
� Continue Synthroid
#Hypertension
�stopped lisinopril due to HASMUKH, hyperkalemia
- Patient's BP is acceptable without BP medications
DVT prophylaxis � HSQ
Full Code
Updated daughter 03/31
Total time spent to see the patient on the floor, examine the patient, review data and lab results, discuss treatment plan with patient, nursing staff around 40 minutes.
Physical Exam
General: Well Developed and Well Nourished
HEENT: NormoCephalic
Respiratory: Clear
Cardiac: S1/S2 and Regular Rhythm
GI: Non Tender
Musculoskeletal: No Clubbing
Skin: (Scattered bruising to bilateral legs scattered bruising to right arm with mild skin tear)
Neuro: Intermittent confusion & agitation noted
Anticipated Discharge: Within 24 hours
Subjective/Interval History
-
Date of Service: March 31, 2025
Per daughter, patient was sleeping well yesterday. He did not have any intermittent agitation. He denies chest pain, denies shortness of breath. No fever, no vomiting.
Objective Data
-
Labs:
Laboratory Results
03/31/25
07:18
Sodium Pending
Potassium Pending
Chloride Pending
Carbon Dioxide Pending
BUN Pending
Creatinine Pending
Glucose Pending
Calcium Pending
Vital Signs:
Vital Signs
Temp Pulse Resp BP Pulse Ox
97.4 F 82 16 141/66 96
03/31/25 07:35 03/31/25 07:35 03/31/25 07:35 03/31/25 07:35 03/31/25 07:35
I&O
03/30/25 03/31/25 04/01/25
06:59 06:59 06:59
Intake Total 840 / 840 1440 / 1440
Output Total 1200 / 1200 950 / 950
Balance -360 / -360 490 / 490
[2025-03-31 09:15] LABS: Blood Urea Nitrogen 40 mg/dl (9-20); Calcium 8.8 mg/dl (8.4-10.2); Carbon Dioxide 30 mmol/L (22-30); Chloride 102 mmol/L (98-107); Estimated Creatinine Clearance 27 ml/min; Glucose 95 mg/dl (70-99); Potassium 4.8 mmol/L (3.5-5.1); Sodium 135 mmol/L (135-145); eGFR 36.43
[2025-03-31] MEDS: ROCEPHIN IV (10:18)
[2025-03-31] MEDS: STERILE WATER FOR INJECTION IV (10:18)
--- NOTE | 2025-03-31 11:34 | CM ---
Addendum entered by Sangeetha Barlow 03/31/25 16:00:
auth approved for tomorrow, 04/01-04/07, NRD 04/08, auth #[id number]
call for updates [phone], fax [phone].
Patient scheduled for 10:00 a.m. ambulance transport, updates to Matteo at [facility].
Daughter bedside, aware of d/c plan. IMM verbally reviewed, provided with copy, placed in chart.
Plan; auth approved, d/c to [facility] tomorrow, 10[facility] a.m[facility]
Report: [phone]

Original Note:
CM reviewed chart, patient seen in chair, daughter present.
CM spoke with Brooke, liaison at [facility], unfortunately no beds at this time.
[facility] to [facility], auth initiated through [employer], pending reference #[id number]. Clinicals faxed to [phone],
patient will require ambulance transport.
CM will continue to follow for all d.c planning needs.
Plan; [facility] pending [employer] auth.
--- NOTE | 2025-03-31 13:14 | W.PN.UPDATE ---
Update Note
Progress Note Update
patient seen chart reviewed. daughter at bedside. the patient was awake and alert preparing to eat lunch. he did not engage a whole lot but did answer a few questions. d feels he is getting back to normal. his serum sodium is 135. zoloft is back
up to 50 mg dose and if sodium holds would increase still depending on its efficacy re ocd sx. the patient is going to [facility] tomorrow. at this point his only psych med is sertraline (zoloft) 50 mg daily. psych will sign off.
[2025-03-31 15:30] VITALS: BP 118/58
--- NOTE | 2025-03-31 15:48 | W.PN.NEPH.PH ---
Today's Communication / Plan
-
ok for d/c
Assessment/Plan
-
IMP:
Urinary retention
HASMUKH with CKD 3b baseline cr 1.7-1.9
Chronic Hyperkalemia
Azotemia +/- uremia
Hyponatremia
Transaminitis
mild non gap met acidosis
Leukocytosis
Acute metabolic encephalopathy
Hypothyroidism
Hypertension
Minor nodular thickening versus subcentimeter adenomas in the bilateral adrenal glands on CT
Plan:
mild HASMUKH-from U retention cr stable at 1.8 baseline
Sodium better at 135, keep zoloft at 50mg
failed VT 03/25, and 03/29, keep grigsby and follow
completed abx for UTI
BP stable, holding ACEI likely do not resume at d/c too
follow labs
d/w daughter at bedside
nephro f/u out pt
d/c to SNF
-
-
Date of Service: March 31, 2025
CC / HPI / ROS
-
Chief Complaint:
HASMUKH
History of Present Illness:
HASMUKH/Cr better at 1.8 , k normal
Currently on foely for failing voiding trial
BP stable
Hyponatremia up to 135
Review of Systems:
no cp or osb
no fever
no n/v
Mental status still not at baseline per daughter
Labs
-
Labs:
WBC 7.5 10^3/uL (4.8-10.8) 03/30/25 08:40
RBC 3.90 10^6/uL (4.70-6.10) L 03/30/25 08:40
Hgb 12.1 g/dL (13.0-18.0) L 03/30/25 08:40
Hct 36.2 % (39.0-52.0) L 03/30/25 08:40
Plt Count 225 10^3/uL (130-400) 03/30/25 08:40
Sodium 135 mmol/L (135-145) 03/31/25 07:18
Potassium 4.8 mmol/L (3.5-5.1) 03/31/25 07:18
Chloride 102 mmol/L (98-107) 03/31/25 07:18
Carbon Dioxide 30 mmol/L (22-30) 03/31/25 07:18
BUN 40 mg/dl (9-20) H 03/31/25 07:18
Creatinine 1.8 mg/dL (0.7-1.3) H 03/31/25 07:18
eGFR 36.43 03/31/25 07:18
Glucose 95 mg/dl (70-99) 03/31/25 07:18
Calcium 8.8 mg/dl (8.4-10.2) 03/31/25 07:18
Albumin 3.0 g/dl (3.5-5.0) L 03/29/25 06:38
Physical Exam
-
Vital Signs:
Vital Signs
Temp Pulse Resp BP Pulse Ox
98.2 F 85 16 118/58 95
03/31/25 15:30 03/31/25 15:30 03/31/25 15:30 03/31/25 15:30 03/31/25 15:30
Cardiovascular:: Regular rate and rhythm
Respiratory:: Bilateral: CTA (decreased BS anteriorly)
Lung Excursion:: Normal
Abdomen:: Nontender and Soft
Bowel Sounds:: Normal
Extremity Edema:: None: Bilateral:
Grigsby Catheter: Yes
[2025-03-31] MEDS: HEPARIN SC (17:06)
[2025-03-31 23:47] VITALS: BP 143/98
--- NOTE | 2025-04-01 02:42 | PTCARENOTE ---
Patient is oriented to self and sometimes place. Patient has needed constant redirection through out the night, as he was noted to attempt to get out of bed multiple times. RN offered patient water, snacks, toileting opportunities, and pain
medication. Patient re-oriented multiple times. Patient is not re-directable and agitated. Nurse practitioner Martina made aware at 0231 of patient`s status. 12.5 mg dose of Risperdal ordered. See MAR for administration.
[2025-04-01] MEDS: SYNTHROID 75 MCG PO (02:51)
[2025-04-01] MEDS: RISPERDAL 0.25 MG PO (02:51)
--- NOTE | 2025-04-01 04:55 | PTCARENOTE ---
Patient is still awake after 0251 dose of 0.25 mg tablet of Risperdal. Bed alarm remains in place. Call morrissey within reach. Staff continuing to re-direct patient and provide fall risk education.
[2025-04-01 07:35] VITALS: BP 110/52
[2025-04-01] MEDS: PROSCAR 5 MG PO (08:16)
[2025-04-01] MEDS: ZOLOFT 50 MG PO (08:16)
[2025-04-01] MEDS: FLOMAX 0.4 MG PO (08:16)
[2025-04-01] MEDS: HEPARIN 5000 UNITS SC (08:17)
[2025-04-01] MEDS: STERILE WATER FOR INJECTION IV (08:20)
[2025-04-01 08:26] LABS: Blood Urea Nitrogen 43 mg/dl (9-20); Calcium 8.6 mg/dl (8.4-10.2); Carbon Dioxide 28 mmol/L (22-30); Chloride 99 mmol/L (98-107); Estimated Creatinine Clearance 27 ml/min; Glucose 99 mg/dl (70-99); Potassium 4.6 mmol/L (3.5-5.1); Sodium 131 mmol/L (135-145); eGFR 36.43
--- NOTE | 2025-04-01 09:53 | CM ---
authorization approved for [facility] today
10am transport today
spoke with Matteo at [facility]
IMM in chart
Plan; auth approved, d/c to [facility] tomorrow, 10:00 a.m.
[facility]
Report: [phone]

transportation forms on chart
--- NOTE | 2025-04-01 18:11 | W.DCSUMMARY ---
Discharge Summary
Discharge Data
Date of Admission: 03/23/25
Date of Discharge: 04/01/25
-
Pending Results: No
Hospital Course
Discharge diagnosis:
Acute urinary retention requiring Dunlap
Acute urinary tract infection
Acute kidney injury on stage IIIb chronic kidney disease
Hyperkalemia
Hyponatremia
Acute toxic metabolic encephalopathy
Dementia with behavioral disturbance
Vasovagal syncope
Obsessive-compulsive disorder
Leukocytosis
Transaminitis
Hypothyroidism
Essential hypertension
Consults: Urology, psychiatry
Hospital course:
84-year-old male with a past medical history of hypothyroidism, hypertension, OCD, and dementia was admitted for acute urinary retention, acute urinary tract infection, acute kidney injury, and vasovagal syncope. Patient was treated with IV
Rocephin for his acute urinary tract infection. Urine cultures grew out E. coli, sensitive to cefazolin. He received 5 days of IV Rocephin, he does not need any more antibiotics.
Patient has a history of TURBT in 2017, and follows with Dr. Varma. He had a Dunlap inserted upon admission for his acute urinary retention. His Proscar dose was changed to 5 mg daily, he was started on Flomax. He failed two void trials. He was
seen in conjunction with urology, who recommended discharge with a Dunlap. He can continue his Proscar and tamsulosin.
Patient was seen in conjunction with nephrology for his acute kidney injury and hyponatremia. His acute kidney injury is due to obstructive uropathy, and his creatinine returned to baseline of 1.8, it was as high as 2.4 upon admission.
Patient had hyponatremia, and was treated with a fluid restriction. He is on sertraline 50 mg daily for his OCD. He was seen in conjunction with psychiatry for his dementia with behavioral disturbance. Psychiatry felt that his sertraline cannot
be weaned, as his OCD symptoms are quite disruptive. Discussed with nephrology, who states that patient may continue his sertraline 50 mg daily for his OCD. He needs to continue a 48 oz fluid restriction upon discharge, and can have a repeat BMP
at the nursing facility on 04/05/2025.
After several days, his mentation returned to baseline. He is medically stable and cleared by nephrology for discharge. He needs to follow-up with his PCP 1 week after he leaves rehab, as well as urology in the office in 1 week for void trial.
Disposition: Short-term rehab
Discharge planning: Required 41 minutes
Discharge Plan
-
Patient Disposition: Senior Living/SNF
Discharge Diagnosis/Procedures: Sepsis, acute urinary tract infection, acute urinary retention requiring Dunlap, obsessive-compulsive disorder, hyponatremia, dementia
Condition: Good
Diet: Regular and Restrict fluids to 48 oz
Activity: As tolerated
Blood Work: BMP on 04/05/25
Activity Restrictions/Additional Instructions:
Your blood pressure in the hospital was mostly normal without any medications.
Recommend stopping lisinopril and monitoring for now.
Please follow-up with your primary care provider 1 week after you leave rehab, and follow-up with urology in the office in 1 week for void trial.
Wound Care Instructions
R arm: clean with soap and water, leave steri strips in place until fall off on own. Apply Adaptic, ABD pad and flo. Change q 2 days and prn drainage.
Referrals:
Nestor Dobson MD [Family Provider, Internal Medicine] - in one week
Vinh Varma MD [Active, Urology] - in one week
Prescriptions:
New
tamsulosin 0.4 mg Capsule
0.4 mg PO DAILY Qty: 30 0RF
finasteride 5 mg Tablet
5 mg PO DAILY Qty: 30 0RF
Continued
vitamin B complex 1 TAB tablet
1 tab PO DAILY
levothyroxine [Synthroid] 25 mcg Tablet
37.5 mcg PO DAILY
sertraline 50 mg Tablet
50 mg PO DAILY
Discontinued
lisinopril 40 MG tablet
40 mg PO DAILY
finasteride 5 MG tablet
5 mg PO Q72H
Discharge Orders:
Discharge Patient (As Directed); Ordered 04/01/25
Ordered By: Newton Grajeda
Discharge Date and Time
Discharge Date/Time: 04/01/25 10:46
Print Language: CZECH
== END 2025-04-01 10:46 | DRG 871 ==
LOC: 4 WEST ACU 16:37
PROVIDERS: Nurse Practitioner; Specialist; ADMITTING PHYSICIAN Internal Medicine; ATTENDING PHYSICIAN Family Medicine; CONSULT PHYSICIAN Psychiatry & Neurology Psychiatry; EMERGENCY PHYSICIAN Emergency Medicine; FAMILY PHYSICIAN Internal Medicine; OTHER PHYSICIAN Internal Medicine
DX: A41.9 Sepsis, unspecified organism (principal); G93.41 Metabolic encephalopathy; N39.0 Urinary tract infection, site not specified; N17.9 Acute kidney failure, unspecified; E87.1 Hypo-osmolality and hyponatremia; E87.20 Acidosis, unspecified; B96.20 Unspecified Escherichia coli [E. coli] as the cause of diseases classified elsewhere; I12.9 Hypertensive chronic kidney disease with stage 1 through stage 4 chronic kidney disease, or unspecified chronic kidney disease; N18.32 Chronic kidney disease, stage 3b; E87.5 Hyperkalemia; R65.20 Severe sepsis without septic shock; R33.9 Retention of urine, unspecified; N40.1 Benign prostatic hyperplasia with lower urinary tract symptoms; D72.829 Elevated white blood cell count, unspecified; E03.9 Hypothyroidism, unspecified; Z87.891 Personal history of nicotine dependence; Z79.890 Hormone replacement therapy; Z79.899 Other long term (current) drug therapy; E78.00 Pure hypercholesterolemia, unspecified; Z90.79 Acquired absence of other genital organ(s)
CPT/HCPCS: 51798; 70450; 71046; 72125; 74176; 80048; 80053; 81003; 81015; 82570; 82607; 82746; 83735; 83935; 84300; 84443; 85025; 85027; 87070; 87077; 87086; 87186; 93005; 93306; 96361; 96365; 96366; 97110; 97116; 97163; 97167; 97530; 97535; 99285; J2358; J7030

== ENCOUNTER → 2025-04-07 13:00 | Outpatient (REF) | payer OTHER, SELFPAY ==
[2025-04-07 13:33] LABS: Urine Character Clear (Clear)
[2025-04-07 13:42] LABS: Urine Red Blood Cell 0-2 /HPF (0-2); Urine Squamous Cell 0-2 /LPF (Few)
== END ==
LOC: OLABN 13:00
PROVIDERS: ATTENDING PHYSICIAN Student in an Organized Health Care Education/Training Program
DX: R82.90 Unspecified abnormal findings in urine (principal)
CPT/HCPCS: 81003; 81015; 87077; 87086; 87186

== ENCOUNTER → 2025-04-08 09:25 | Outpatient (REF) | payer OTHER, SELFPAY ==
[2025-04-08 10:36] LABS: Hematocrit 31.2 % (39.0-52.0); Hemoglobin 10.4 g/dL (13.0-18.0); Mean Corp Hgb Conc. 33.3 g/dL (33.0-37.0); Mean Corpuscular Volume 93.7 fL (80.0-94.0); Nucleated Red Blood Cells % 0 % (-); Platelet Count 330 10^3/uL (130-400); Red Cell Dist. Width 12.3 % (11.5-14.5)
== END ==
LOC: OLABN 09:25
PROVIDERS: ATTENDING PHYSICIAN Student in an Organized Health Care Education/Training Program
DX: R82.90 Unspecified abnormal findings in urine (principal)
CPT/HCPCS: 36415; 85025

== ENCOUNTER → 2025-04-09 07:02 | Outpatient (REF) | payer OTHER, SELFPAY ==
[2025-04-09 08:07] LABS: Blood Urea Nitrogen 31 mg/dl (9-20); Calcium 8.3 mg/dl (8.4-10.2); Carbon Dioxide 23 mmol/L (22-30); Chloride 106 mmol/L (98-107); Glucose 78 mg/dl (70-99); Potassium 4.9 mmol/L (3.5-5.1); Sodium 135 mmol/L (135-145); eGFR 41.96
== END ==
LOC: OLABN 07:02
PROVIDERS: ATTENDING PHYSICIAN Student in an Organized Health Care Education/Training Program
DX: R82.90 Unspecified abnormal findings in urine (principal)
CPT/HCPCS: 36415; 80048